=== PATIENT | male | born 1930 | race Caucasian/White ===

== ENCOUNTER 2016-12-10 16:06 | Emergency (ER) | payer OTHER ==
[~2016-12-10] VITALS: Ht 167.6 cm; Wt 72.5 kg
[~2016-12-10 16:06] MED LIST: ASPI81TA28 PO; CYAN100020 PO; FLV1 PO; KPP250 PO; LEVE500T PO; NMN10 PO; POLY335019 PO; RANI300T2 PO; VITA400C15 PO; ZCR40 PO
[2016-12-10 16:08] VITALS: TEMP 36.6; Ht 167.6 cm; Wt 72.5 kg
[2016-12-10] MEDS ORDERED: SODIUM CHLORIDE 0.9% 1000ML 1,000 ML IV STA (16:21)
[2016-12-10] MEDS ORDERED: ONDANSETRON INJ 2 MG/ML 2 ML VIAL IV STA (16:21)
[2016-12-10] MEDS ORDERED: PRLSR20 PO (16:39)
[2016-12-10] MEDS ORDERED: CLX40 PO (16:39)
[2016-12-10] MEDS ORDERED: ESLI1TAB PO (16:39)
--- NOTE | 2016-12-10 16:40 | DIAGNOSTIC IMAGING REPORT ---
SINGLE VIEW CHEST CLINICAL HISTORY: Atypical chest pain. FINDINGS: An AP, portable, upright chest radiograph is compared to study dated 05/10/2016 and correlated with chest CT dated 03/09/2016. The examination is degraded by portable technique and patient rotation. The heart is mildly enlarged and there is atherosclerotic calcification of the thoracic aorta. The pulmonary vasculature is noncongested. Chronic interstitial thickening is similar to previous. There is minimal bibasilar atelectasis. No airspace consolidation, large pleural effusion, or pneumothorax is seen. The skeletal structures are osteopenic. Degenerative change and scoliosis are identified in the thoracic spine. IMPRESSION: Mild cardiomegaly with no acute cardiopulmonary abnormality. Electronically signed by: Armando Conn M.D. 12/10/2016 4:38 PM Dictated Date/Time: 12/10/2016 4:37 PM
--- NOTE | 2016-12-10 17:01 | EMERGENCY ROOM VISIT NOTE ---
History Report prepared by Gurvinder: Ara Huerta Under the Supervision of: Dr. Irma Mg M.D. First contact with patient: 16:12 Chief Complaint: NEURO SYMPTOMS Stated Complaint: NAUSEA,BLURRED VISION,DROWSINESSS Nursing Triage Summary: Nausea, blurred vision and dizziness. Denies headache. Hx of dementia and seizure history. feels that the pts medications are not agreeing with him. History of Present Illness The patient is a 86 year old male who presents to the Emergency Room with complaints of worsening nausea that started earlier today. The patient has been experiencing nausea for the past year but today was worse than it typically is. He was lying in bed when he became very nauseous. The patient is also experiencing epigastric pressure and aches in his shoulders and legs. He also experienced blurred vision, dizziness, and chills. However, the patient's states that he has been experiencing chills ever since he started having seizures 1.5 years ago. The patient's also states that his medications have been continuously changing over the past year to try to get rid of his nausea. The patient also has a history of dementia and his states that the seizures are related to the dementia. The patient's also states that he has been experiencing worsening fatigue since that diagnosis. The patient had an appendectomy but still has his gallbladder. He adds that he has a history of kidney stones and weak spots in his esophagus. The patient started Celexa one week ago. His doctor also recently increased his medication for GERD. Source of History: patient Onset: earlier today Quality: other (nausea) Timing: worsening Associated Symptoms: + abdominal pain (epigastric pressure), + chills, + fatigue Note: blurred vision, dizziness, aches in shoulders and legs Review of Systems See HPI for pertinent positives & negatives. A total of 10 systems reviewed and were otherwise negative. Past Medical & Surgical Medical Problems: (1) Confusion (2) Dementia (3) GERD (gastroesophageal reflux disease) (4) Hiatal hernia (5) High cholesterol (6) Hypoxia (7) TIA (transient ischemic attack) Surgical Problems: (1) History of appendectomy (2) Hx of tonsillectomy Family History Diabetes mellitus MOTHER Social History Smoking Status: Never Smoker Alcohol Use: none Drug Use: none Marital Status: Housing Status: lives with family Occupation Status: retired Current/Historical Medications Scheduled Aspirin (Aspirin Ec), 81 MG PO QPM Citalopram (Citalopram Hydrobromide), 40 MG PO DAILY Cyanocobalamin (Vitamin B12), 1,000 MCG PO DAILY AT LUNCH Eslicarbazepine Acetate (Aptiom), 200 MG PO DAILY Folic Acid (Folic Acid), 1 MG PO HS Memantine (Namenda), 10 MG PO BID Omeprazole (Prilosec), 20 MG PO DAILY Polyethylene Glycol 3350 (Miralax), 17 GM PO QAM Simvastatin (Simvastatin), 40 MG PO QPM Tocopheryl Acet,Dl-Alpha (Vitamin E), 400 INTER.UNIT PO QPM Allergies Coded Allergies: Aspirin (Verified Adverse Reaction, Severe, STOMACH CRAMPS WITH 325MG, ) Physical Exam Vital Signs Date Time Temp Pulse Resp B/P Pulse Ox O2 Delivery O2 Flow Rate FiO2 12/10/16 19:29 56 18 142/65 96 Room Air 12/10/16 18:24 86 18 125/80 94 Room Air 12/10/16 16:22 56 12/10/16 16:08 36.6 58 18 124/65 91 Room Air Physical Exam Vital signs reviewed. General: Well-appearing male, in no significant distress. HEENT: No scleral icterus, PERRLA, neck supple. Atraumatic. Cardiovascular: Regular rate and rhythm, no extra sounds. Pulmonary: Clear to auscultation bilaterally, normal work of breathing. Abdomen: Soft, nontender, nondistended, positive bowel sounds. Musculoskeletal: Atraumatic, no peripheral edema. Neurologic: Patient awake alert and oriented x 3, answers questions appropriately. Full strength in all 4 extremities. Cranial nerves 2 through 12 grossly intact. Skin: Warm, dry, no rash Medical Decision & Procedures ER Provider Diagnostic Interpretation: X-ray results as stated below per my interpretation and radiologist interpretation. Other radiology results as stated below per my review and radiologist interpretation: SINGLE VIEW CHEST IMPRESSION: Mild cardiomegaly with no acute cardiopulmonary abnormality. Electronically signed by: Armando Conn M.D. 12/10/2016 4:38 PM Dictated Date/Time: 12/10/2016 4:37 PM ULTRASOUND RIGHT UPPER QUADRANT ABDOMEN IMPRESSION: 1. No acute sonographic abnormality is identified in the right upper quadrant. 2. Minimal biliary sludge and small gallstones. There is no sonographic evidence of acute cholecystitis. 3. The pancreas was not well visualized due to overlying bowel gas. Electronically signed by: Armando Conn M.D. 12/10/2016 6:09 PM Dictated Date/Time: 12/10/2016 6:[address] SCAN OF THE BRAIN WITHOUT IV CONTRAST IMPRESSION: Senescent changes as above with no hemorrhage, mass effect, or evidence of acute territorial ischemia by CT criteria. Electronically signed by: Armando Conn M.D. 12/10/2016 6:52 PM Dictated Date/Time: 12/10/2016 6:49 PM Laboratory Results 12/10/16 16:50 Red Blood Count 4.58, Mean Corpuscular Volume 94.8, Mean Corpuscular Hemoglobin 34.3, Mean Corpuscular Hemoglobin Concent 36.2, Mean Platelet Volume 9.9, Neutrophils (%) (Auto) 52.6, Lymphocytes (%) (Auto) 33.1, Monocytes (%) (Auto) 12.8, Eosinophils (%) (Auto) 1.1, Basophils (%) (Auto) 0.2, Neutrophils # (Auto ) 4.47, Lymphocytes # (Auto) 2.82, Monocytes # (Auto) 1.09, Eosinophils # (Auto ) 0.09, Basophils # (Auto) 0.02 12/10/16 16:50 Test 12/10/16 16:50 12/10/16 16:59 12/10/16 17:26 White Blood Count 8.51 K/uL (4.8-10.8) Red Blood Count 4.58 M/uL (4.7-6.1) Hemoglobin 15.7 g/dL (14.0-18.0) Hematocrit 43.4 % (42-52) Mean Corpuscular Volume 94.8 fL (80-100) Mean Corpuscular Hemoglobin 34.3 pg (25-34) Mean Corpuscular Hemoglobin Concent 36.2 g/dl (32-36) Platelet Count 172 K/uL (130-400) Mean Platelet Volume 9.9 fL (7.4-10.4) Neutrophils (%) (Auto) 52.6 % Lymphocytes (%) (Auto) 33.1 % Monocytes (%) (Auto) 12.8 % Eosinophils (%) (Auto) 1.1 % Basophils (%) (Auto) 0.2 % Neutrophils # (Auto) 4.47 K/uL (1.4-6.5) Lymphocytes # (Auto) 2.82 K/uL (1.2-3.4) Monocytes # (Auto) 1.09 K/uL (0.11-0.59) Eosinophils # (Auto) 0.09 K/uL (0-0.5) Basophils # (Auto) 0.02 K/uL (0-0.2) RDW Standard Deviation 40.9 fL (36.4-46.3) RDW Coefficient of Variation 11.9 % (11.5-14.5) Immature Granulocyte % (Auto) 0.2 % Immature Granulocyte # (Auto) 0.02 K/uL (0.00-0.02) Anion Gap 8.0 mmol/L (3-11) Est Creatinine Clear Calc Drug Dose 36.8 ml/min Estimated GFR () 57.3 Estimated GFR (Non- 49.4 BUN/Creatinine Ratio 12.5 (10-20) Calcium Level 9.0 mg/dl (8.5-10.1) Magnesium Level 2.3 mg/dl (1.8-2.4) Total Bilirubin 0.9 mg/dl (0.2-1) Direct Bilirubin 0.2 mg/dl (0-0.2) Aspartate Amino Transf (AST/SGOT) 23 U/L (15-37) Alanine Aminotransferase (ALT/SGPT) 25 U/L (12-78) Alkaline Phosphatase 77 U/L (45-117) Total Creatine Kinase 52 U/L (39-308) Creatine Kinase MB 0.6 ng/ml (0.5-3.6) Creatine Kinase MB Ratio 1.2 (0-3.0) Total Protein 6.4 gm/dl (6.4-8.2) Albumin 3.7 gm/dl (3.4-5.0) Lipase 104 U/L (73-393) Bedside Troponin I 0.000 ng/ml (0-0.045) Urine Color YELLOW Urine Appearance CLEAR (CLEAR) Urine pH 7.5 (4.5-7.5) Urine Specific D[place] 1.009 (1.000-1.030) Urine Protein NEG (NEG) Urine Glucose (UA) NEG (NEG) Urine Ketones NEG (NEG) Urine Occult Blood NEG (NEG) Urine Nitrite NEG (NEG) Urine Bilirubin NEG (NEG) Urine Urobilinogen NEG (NEG) Urine Leukocyte Esterase NEG (NEG) Laboratory results per my review. Medications Administered Medications (Trade) Dose Ordered Sig/Saundra Route Start Time Stop Time Status Last Admin Dose Admin Ondansetron HCl 4 mg 4 mg NOW STAT IV 12/10/16 16:21 12/10/16 16:24 DC 12/10/16 17:21 4 MG Sodium Chloride (Nss 1000ml) 1,000 ml @ 125 mls/hr Q8H STAT IV 12/10/16 16:21 12/10/16 20:06 DC 12/10/16 17:21 125 MLS/HR ECG Indication: nausea Rate (beats per minute): 52 Rhythm: sinus bradycardia Findings: 1st degree AV block, no acute ischemic change, no ectopy ED Course 1616: Past medical records reviewed. The patient was evaluated in room B5. A complete history and physical examination was performed. 1621: Ordered Sodium Chloride 1000 ml @ 125 mls/hr IV, Zofran 4 mg IV 1910: Upon reevaluation, the patient appeared to have improvement of his symptoms. I discussed findings with the patient and his . They verbalized agreement of the treatment plan. The patient was discharged home. Medical Decision The patient is a 86 year old male who presents to the Emergency Room with complaints of worsening nausea that started earlier today. Differentials include metabolic, infection, hypo/hyperglycemia, electrolyte abnormalities, cardiac sources, intracerebral event, toxicologic, neurologic. This patient was evaluated and appeared to be in no significant distress. IV access was obtained and laboratory work was drawn. The patient was placed floatman and found to be in a sinus bradycardia. Laboratory work reveals no significant abnormalities. Patient's EKG reveals no evidence of acute ischemia. The patient has aspirin listed as an allergy. When he is asked to describe the effects of aspirin, he states it gives him gastritis when he takes in as a full strength tablet. The patient is currently on a baby aspirin daily. I suspect this may be giving him nausea and reflux. The patient was strongly advised to hold the aspirin until he speaks with his physician. He was recently placed on Prilosec and will continue this medication. He will use Zantac as needed twice daily. The patient was discharged in care of his and will follow-up with his physician is week and return to the ER for worsening of symptoms or any medical concerns. Impression Primary Impression: Long-term use of aspirin therapy Additional Impression: Gastritis, acute Scribe Attestation The scribe's documentation has been prepared under my direction and personally reviewed by me in its entirety. I confirm that the note above accurately reflects all work, treatment, procedures, and medical decision making performed by me. Departure Information Dispostion Home / Self-Care Referrals Maegan Valencia M.D. (PCP) Forms HOME CARE DOCUMENTATION FORM, IMPORTANT VISIT INFORMATION, WORK / SCHOOL INSTRUCTIONS Patient Instructions My [facility] Additional Instructions Diagnosis: Gastritis, aspirin therapy, dementia Stop aspirin therapy until you speak with your doctor. Continue your other medications as prescribed. Use ranitidine up to twice daily as needed for acid reflux. Follow-up with your physician this week for reevaluation. Return to the ER for worsening of symptoms or any medical concerns. Problem Qualifiers Additional Impression: Gastritis, acute Gastritis type: unspecified gastritis Gastritis bleeding: without bleeding Qualified Codes: K29.00 - Acute gastritis without bleeding
[2016-12-10 17:08] LABS: BASO % 0.2 %; BASO ABS # 0.02 K/uL (0-0.2); COMPLETE YES; EOS % 1.1 %; HEMATOCRIT 43.4 % (42-52); IG% 0.2 %; LYMPH % 33.1 %; LYMPH ABS # 2.82 K/uL (1.2-3.4); MEAN CELL VOLUME 94.8 fL (80-100); MEAN CORPUSCULAR HEMOGLOBIN 34.3 pg (25-34); MEAN CORPUSCULAR HGB CONC 36.2 g/dl (32-36); MEAN PLATELET VOLUME 9.9 fL (7.4-10.4); MONO % 12.8 %; NEUT % 52.6 %; PLATELET COUNT 172 K/uL (130-400); RED BLOOD COUNT 4.58 M/uL (4.7-6.1); WHITE BLOOD COUNT 8.51 K/uL (4.8-10.8)
[2016-12-10 17:31] LABS: BUN/CREATININE RATIO 12.5 (10-20); CREATININE 1.3 mg/dl (0.60-1.40); MAGNESIUM 2.3 mg/dl (1.8-2.4); POTASSIUM 4.4 mmol/L (3.5-5.1)
[2016-12-10 17:34] LABS: CKMB/CK RATIO 1.2 (0-3.0)
[2016-12-10 17:54] LABS: URINE APPEARANCE CLEAR (CLEAR); URINE BILIRUBIN NEG (NEG); URINE COLOR YELLOW; URINE NITRITE NEG (NEG); URINE PH 7.5 (4.5-7.5); URINE SPECIFIC GRAVITY 1.009 (1.000-1.030); UROBILINOGEN NEG (NEG); ZZUR CULT IF INDIC CLEAN CATCH NO
--- NOTE | 2016-12-10 18:11 | DIAGNOSTIC IMAGING REPORT ---
ULTRASOUND RIGHT UPPER QUADRANT ABDOMEN CLINICAL HISTORY: Right upper quadrant abdominal pain. COMPARISON STUDY: Renal ultrasound dated 11/03/2011. TECHNIQUE: Real-time, grayscale, and color flow sonography of the right upper quadrant of the abdomen was performed. Images are reviewed in the transverse and longitudinal planes. FINDINGS: Liver: The liver is normal in size and echotexture. There is no intrahepatic biliary ductal dilatation. The main portal vein is patent. Small hepatic cysts are incidentally noted and measure up to 11 mm. Gallbladder: There is trace biliary sludge and a few small gallstones. There is no gallbladder wall thickening or pericholecystic fluid. A sonographic Womack's sign is reportedly absent. The common bile duct measures up to 0.6 cm in diameter. Pancreas: Not well visualized due to overlying bowel gas. Right kidney: Survey images of the right kidney demonstrate cortical atrophy. There is no hydronephrosis. Ascites: None. IMPRESSION: 1. No acute sonographic abnormality is identified in the right upper quadrant. 2. Minimal biliary sludge and small gallstones. There is no sonographic evidence of acute cholecystitis. 3. The pancreas was not well visualized due to overlying bowel gas. Electronically signed by: Armando Conn M.D. 12/10/2016 6:09 PM Dictated Date/Time: 12/10/2016 6:07 PM
[2016-12-10 18:17] LABS: MANUAL MICROSCOPIC REQUIRED? NO; REVIEW REQ? NO
--- NOTE | 2016-12-10 18:54 | DIAGNOSTIC IMAGING REPORT ---
CT SCAN OF THE BRAIN WITHOUT IV CONTRAST CLINICAL HISTORY: Change in mental status. Dementia. COMPARISON STUDY: CT of the brain dated 05/10/2016. MRI of the brain dated 05/10/2016. TECHNIQUE: Unenhanced axial CT scan of the brain is performed from the vertex to the skull base. CT DOSE: 537.48 mGy.cm FINDINGS: Brain parenchyma: There are age-related involutional changes noting mild to moderate patchy subcortical and periventricular microangiopathic change. There is no hemorrhage, mass effect, or evidence of acute territorial ischemia by CT criteria. Bass-white matter is preserved. No extra-axial fluid collection is seen. Ventricles, sulci, cisterns: Prominent secondary to involutional change. Intracranial vasculature: There is atherosclerotic calcification of the cavernous carotid and vertebral arteries. Calvarium: Unremarkable. Sinuses and mastoids: The visualized paranasal sinuses are clear. The mastoid air cells are well pneumatized. Orbits: The bony orbits are grossly intact. There are bilateral ocular lens implants. IMPRESSION: Senescent changes as above with no hemorrhage, mass effect, or evidence of acute territorial ischemia by CT criteria. Electronically signed by: Armando Conn M.D. 12/10/2016 6:52 PM Dictated Date/Time: 12/10/2016 6:49 PM
[2016-12-10 19:29] VITALS: BP 142/65; PULSE 56; O2SAT 96
[2017-05-19] MEDS ORDERED: AMOX500C3 PO (14:58)
== END 2016-12-10 19:29 | disposition home or self-care (01) ==
LOC: C.EDB 16:07
DX: K29.00 Acute gastritis without bleeding (principal); I44.0 Atrioventricular block, first degree; E78.00 Pure hypercholesterolemia, unspecified; K21.9 Gastro-esophageal reflux disease without esophagitis; F03.90 Unspecified dementia, unspecified severity, without behavioral disturbance, psychotic disturbance, mood disturbance, and anxiety; Z86.73 Personal history of transient ischemic attack (TIA), and cerebral infarction without residual deficits; Z98.890 Other specified postprocedural states; Z79.82 Long term (current) use of aspirin; Z79.899 Other long term (current) drug therapy; Z88.6 Allergy status to analgesic agent; Z83.3 Family history of diabetes mellitus

== ENCOUNTER 2017-04-27 14:03 | Observation (INO) | payer OTHER ==
[~2017-04-27] VITALS: Ht 166.4 cm; Wt 69.6 kg
[~2017-04-27 14:03] MED LIST changes: +CLX40 PO; +ESLI1TAB PO; -KPP250 PO; -LEVE500T PO; +PRLSR20 PO; -RANI300T2 PO
[2017-04-27] MEDS ORDERED: VITACAP37 PO (14:29)
[2017-04-27] MEDS ORDERED: ESLI1TAB PO (14:29)
[2017-04-27 14:34] LABS: BASO % 0.2 %; BASO ABS # 0.02 K/uL (0-0.2); COMPLETE YES; EOS % 0.7 %; HEMATOCRIT 45.7 % (42-52); IG% 0.5 %; LYMPH % 32.4 %; LYMPH ABS # 3.18 K/uL (1.2-3.4); MEAN CELL VOLUME 96.6 fL (80-100); MEAN CORPUSCULAR HEMOGLOBIN 33.2 pg (25-34); MEAN CORPUSCULAR HGB CONC 34.4 g/dl (32-36); MEAN PLATELET VOLUME 9.9 fL (7.4-10.4); MONO % 10.2 %; PLATELET COUNT 167 K/uL (130-400); RED BLOOD COUNT 4.73 M/uL (4.7-6.1); WHITE BLOOD COUNT 9.82 K/uL (4.8-10.8)
--- NOTE | 2017-04-27 14:56 | DIAGNOSTIC IMAGING REPORT ---
CHEST ONE VIEW PORTABLE HISTORY: Evaluate Fever/Sepsis COMPARISON: Chest 11/30/2016. FINDINGS: The lungs are clear. Cardiac silhouette remains borderline enlarged. Low lung volumes. No pleural effusions. No pneumothorax. IMPRESSION: No significant change compared to the prior study. No acute process. Electronically signed by: Klever Goff M.D. 04/27/2017 2:55 PM Dictated Date/Time: 04/27/2017 2:53 PM
[2017-04-27 15:14] LABS: PROTHROMBIN TIME (PATIENT) 10.8 SECONDS (9.0-12.0)
[2017-04-27 15:31] LABS: ALT/SGPT 22 U/L (12-78); AST/SGOT 14 U/L (15-37); BLOOD UREA NITROGEN 19 mg/dl (7-18); BUN/CREATININE RATIO 13.5 (10-20); CALCIUM 8.5 mg/dl (8.5-10.1); CARBON DIOXIDE 25 mmol/L (21-32); CHLORIDE 105 mmol/L (98-107); GLUCOSE 109 mg/dl (70-99); POTASSIUM 3.9 mmol/L (3.5-5.1); SODIUM 138 mmol/L (136-145)
[2017-04-27 15:42] LABS: ALKALINE PHOSPHATASE 75 U/L (45-117); CKMB/CK RATIO 1.5 (0-3.0)
--- NOTE | 2017-04-27 16:14 | EMERGENCY ROOM VISIT NOTE ---
History Report prepared by Gurvinder: Chapincito Segura Under the Supervision of: Dr. Prosper Robledo D.O. First contact with patient: 14:14 Chief Complaint: GI ASSESSMENT Stated Complaint: N, TIRED, INDIGESTION/ACID REFLUX Nursing Triage Summary: triage note: pt reports fatigue, nausea, chills, chest pressure "it's acid reflux i think i have to rift and then it eases up." pt reports symptoms have been going on " for a couple weeks or so." History of Present Illness The patient is a 86 year old male who presents to the Emergency Room with complaints of constant fatigue upon exertion which began a couple of weeks ago. He reports the discomfort as a 4/10 in severity. The patient states that he has been experiencing indigestion, bowel problems, weakness, back pain, chest pressure, chills, acid reflux, loss of appetite, vomiting, and vision loss. The patient's states that he feels fatigued after any sort of physical movement such as ambulating. He reports that he feels he needs to sit down for five to ten minutes to recover from his exhaustion. The patient states "he feels like I have to rift and then it gets better". The patient states that it has been hard to stay awake and he sleeps a lot. The patient's states that she has noticed he has been anxious and shaky lately. The patient admits that he has had a history of seizures for the past two years and has been taking medication for the past year and a half. He states that the doctors said the cause for the seizures was dehydration and admits that drinking water has helped decrease episodes. The patient's states that she has been checking his pulse every hour. She reports that it has been fluctuating from the 40s to the 70s. The patient denies any cardiac issues or medication for blood pressure. He does admit that he took aspiring in the past but was advised to stop due to nausea. Source of History: patient, spouse/significant other () Onset: a couple of weeks ago Position: other (global) Symptom Intensity: 4/10 Timing: constant Modifying Factors (Worsening): exertion Modifying Factors (Relieving): rest Associated Symptoms: + back pain, + chest pain, + chills, + nausea, + vomiting, + weakness Note: Associated symptoms include: vision loss, acid reflux, indigestion Review of Systems See HPI for pertinent positives & negatives. A total of 10 systems reviewed and were otherwise negative. Past Medical & Surgical Medical Problems: (1) Confusion (2) Dementia (3) GERD (gastroesophageal reflux disease) (4) Hiatal hernia (5) High cholesterol (6) Hypoxia (7) Kidney disease (8) Kidney stones (9) Pneumonia (10) Stomach problems (11) TIA (transient ischemic attack) Surgical Problems: (1) History of appendectomy (2) History of nephrolithotomy with removal of calculi (3) Hx of tonsillectomy Family History Diabetes mellitus MOTHER Social History Smoking Status: Never Smoker Alcohol Use: none Drug Use: none Marital Status: Housing Status: lives with family Occupation Status: retired Current/Historical Medications Scheduled Cyanocobalamin (Vitamin B12), 1,000 MCG PO DAILY AT LUNCH Eslicarbazepine Acetate (Aptiom), 200 MG PO HS Folic Acid (Folic Acid), 1 MG PO HS Memantine (Namenda), 10 MG PO BID Omeprazole (Prilosec), 20 MG PO DAILY Polyethylene Glycol 3350 (Miralax), 17 GM PO QAM Simvastatin (Simvastatin), 40 MG PO QPM Vitamin E (E-400), 400 UNITS PO DAILY Allergies Coded Allergies: Aspirin (Verified Adverse Reaction, Severe, STOMACH CRAMPS WITH 325MG, ) Physical Exam Vital Signs Date Time Temp Pulse Resp B/P Pulse Ox O2 Delivery O2 Flow Rate FiO2 04/27/17 16:00 58 12 99/66 93 Room Air 04/27/17 15:00 58 16 100/71 94 Room Air 04/27/17 14:26 66 18 120/71 94 Room Air 04/27/17 14:16 72 04/27/17 14:07 36.7 41 18 95/58 95 Room Air Physical Exam CONSTITUTIONAL/VITAL SIGNS: Reviewed / noted above. GENERAL: Non-toxic in appearance. INTEGUMENTARY: Warm, dry, and [place]. HEAD: Normocephalic. EYES: without scleral icterus or trauma. ENT/OROPHARYNX: clear and moist. LYMPHADENOPATHY/NECK: Is supple without lymphadenopathy or meningismus. RESPIRATORY: Lungs clear and equal. CARDIOVASCULAR: Regular rate and rhythm. GI/ABDOMEN: Soft and nontender. No organomegaly or pulsatile mass. No rebound or guarding. Normal bowel sounds. EXTREMITIES: Warm and well perfused. BACK: No CVA tenderness. NEUROLOGICAL: Intact without focal deficits. PSYCHIATRIC: normal affect. MUSCULOSKELETAL: Normally developed with good muscle tone. Medical Decision & Procedures ER Provider Diagnostic Interpretation: X ray results and stated below per my interpretation and radiology interpretation. CHEST ONE VIEW PORTABLE HISTORY: Evaluate Fever/Sepsis COMPARISON: Chest 11/30/2016. FINDINGS: The lungs are clear. Cardiac silhouette remains borderline enlarged. Low lung volumes. No pleural effusions. No pneumothorax. IMPRESSION: No significant change compared to the prior study. No acute process. Electronically signed by: Klever Goff M.D. 04/27/2017 2:55 PM Dictated Date/Time: 04/27/2017 2:53 PM Laboratory Results 04/27/17 14:20 Red Blood Count 4.73, Mean Corpuscular Volume 96.6, Mean Corpuscular Hemoglobin 33.2, Mean Corpuscular Hemoglobin Concent 34.4, Mean Platelet Volume 9.9, Neutrophils (%) (Auto) 56.0, Lymphocytes (%) (Auto) 32.4, Monocytes (%) (Auto) 10.2, Eosinophils (%) (Auto) 0.7, Basophils (%) (Auto) 0.2, Neutrophils # (Auto ) 5.50, Lymphocytes # (Auto) 3.18, Monocytes # (Auto) 1.00, Eosinophils # (Auto ) 0.07, Basophils # (Auto) 0.02 04/27/17 14:55 Test 04/27/17 14:20 04/27/17 14:55 White Blood Count 9.82 K/uL (4.8-10.8) Red Blood Count 4.73 M/uL (4.7-6.1) Hemoglobin 15.7 g/dL (14.0-18.0) Hematocrit 45.7 % (42-52) Mean Corpuscular Volume 96.6 fL (80-100) Mean Corpuscular Hemoglobin 33.2 pg (25-34) Mean Corpuscular Hemoglobin Concent 34.4 g/dl (32-36) Platelet Count 167 K/uL (130-400) Mean Platelet Volume 9.9 fL (7.4-10.4) Neutrophils (%) (Auto) 56.0 % Lymphocytes (%) (Auto) 32.4 % Monocytes (%) (Auto) 10.2 % Eosinophils (%) (Auto) 0.7 % Basophils (%) (Auto) 0.2 % Neutrophils # (Auto) 5.50 K/uL (1.4-6.5) Lymphocytes # (Auto) 3.18 K/uL (1.2-3.4) Monocytes # (Auto) 1.00 K/uL (0.11-0.59) Eosinophils # (Auto) 0.07 K/uL (0-0.5) Basophils # (Auto) 0.02 K/uL (0-0.2) RDW Standard Deviation 42.4 fL (36.4-46.3) RDW Coefficient of Variation 12.0 % (11.5-14.5) Immature Granulocyte % (Auto) 0.5 % Immature Granulocyte # (Auto) 0.05 K/uL (0.00-0.02) Prothrombin Time 10.8 SECONDS (9.0-12.0) Prothromb Time International Ratio 1.0 (0.9-1.1) Activated Partial Thromboplast Time 25.3 SECONDS (21.0-31.0) Partial Thromboplastin Ratio 1.0 Anion Gap 8.0 mmol/L (3-11) Est Creatinine Clear Calc Drug Dose 34.2 ml/min Estimated GFR () 52.4 Estimated GFR (Non- 45.2 BUN/Creatinine Ratio 13.5 (10-20) Calcium Level 8.5 mg/dl (8.5-10.1) Total Bilirubin 1.3 mg/dl (0.2-1) Direct Bilirubin 0.3 mg/dl (0-0.2) Aspartate Amino Transf (AST/SGOT) 14 U/L (15-37) Alanine Aminotransferase (ALT/SGPT) 22 U/L (12-78) Alkaline Phosphatase 75 U/L (45-117) Total Creatine Kinase 48 U/L (39-308) Creatine Kinase MB 0.7 ng/ml (0.5-3.6) Creatine Kinase MB Ratio 1.5 (0-3.0) Troponin I < 0.015 ng/ml (0-0.045) Total Protein 6.2 gm/dl (6.4-8.2) Albumin 3.6 gm/dl (3.4-5.0) Lipase 80 U/L (73-393) Thyroid Stimulating Hormone (TSH) 1.710 uIu/ml (0.300-4.500) Laboratory results as stated above per my review. ECG Indication: weakness Rate (beats per minute): 66 Rhythm: sinus with SA Findings: PVC, no acute ischemic change, no ectopy ED Course 1415: Previous medical records were reviewed. The patient was evaluated in room C10. A complete history and physical examination was performed. 1608: On reevaluation, the patient is doing better. I discussed the results and findings with Dr. Donohue, [facility] Hospitalist. She verbalized agreement of accepting the patient. The patient will be evaluated for further management and care. Medical Decision Blood pressure Screening: Patient was found to have normal blood pressure on screening and does not require follow-up. Medication Reconciliation: I attest that I have personally reviewed the patient' s current medication list. the differential was considered includes acute myocardial infarction, acute coronary syndrome, myocarditis, pericarditis, pericardial effusions /tamponad, esophageal perforation, thoracic aortic dissection, pulmonary embolism, pneumonia, pneumothorax, pancreatitis, shingles, acute cholecystitis, perforated abdominal viscus. This is a 86-year-old male who presents to the ED with a chief complaint of weakness, balance problems and exhaustion as well as lightheadedness associated with exertion. The patient also reports some chest discomfort and back discomfort with exertion. He states that this is been ongoing for the couple of weeks. He also states that he is nauseated all the time. He is currently not having any significant symptoms. His vital signs are stable. His heart rate was initially documented at 41. When he was in the room it was in the 60s and 70s. A twelve-lead EKG showed a sinus rhythm at a rate of 66 with some PVCs. No acute injury. CBC and PRP are unremarkable. Chest x-ray did not show acute disease. Troponin is negative. Due to the patient's exertional symptoms, the patient is felt to have unstable angina. He will be seen by the hospitalist for further inpatient care. Consults Time Called: 1605 Consulting Physician: Dr. Donohue Returned Call: 1608 I discussed the results and findings with Dr. Donohue, [facility] Hospitalist. She verbalized agreement of accepting the patient. The patient will be evaluated for further management and care. Impression Primary Impression: Unstable angina Scribe Attestation The scribe's documentation has been prepared under my direction and personally reviewed by me in its entirety. I confirm that the note above accurately reflects all work, treatment, procedures, and medical decision making performed by me. Departure Information Dispostion Being Evaluated By Hospitalist Maegan Prater M.D. (PCP) Patient Instructions My [facility]
--- NOTE | 2017-04-27 16:55 | History and Physical ---
History & Physical Date & Time of Service: April 27, 2017 at 16:43 Chief Complaint: N, Tired, Indigestion/Acid Reflux Primary Care Physician: Maegan Valencia M.D. History of Present Illness Source: patient, spouse, clinic records, hospital records This patient is a pleasant 86-year-old male that presents emergency department with his today with complaints of increased fatigue, chest pressure, nausea and dizziness particularly with exertion. The patient also notes that he has been sleeping much more than usual. The patient denies any history of coronary artery disease. 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 He has not had any seizures recently. No recent changes in medications. With the above associated symptoms, the patient is also complaining of nausea particularly after eating. He denies any abdominal pain. No changes in bowel movements. He does usually have at least one bowel movement per day. He denies any recent illnesses such as fever or cough. He reports eating and drinking normally at home. 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 NO CAD Social History Smoking Status: Never Smoker Alcohol Use: none Drug Use: none Marital Status: Housing status: lives with significant other Occupational Status: retired Multi-Drug Resistant Organisms History of MDRO: No Allergies Coded Allergies: Aspirin (Verified Adverse Reaction, Severe, STOMACH CRAMPS WITH 325MG, ) Home Medications Scheduled Cyanocobalamin (Vitamin B12), 1,000 MCG PO DAILY AT LUNCH Eslicarbazepine Acetate (Aptiom), 200 MG PO HS Folic Acid (Folic Acid), 1 MG PO HS Memantine (Namenda), 10 MG PO BID Omeprazole (Prilosec), 20 MG PO DAILY Polyethylene Glycol 3350 (Miralax), 17 GM PO QAM Simvastatin (Simvastatin), 40 MG PO QPM Vitamin E (E-400), 400 UNITS PO DAILY Review of Systems 10 system review performed and negative unless noted in HPI or below Physical Exam Vital Signs Date Time Temp Pulse Resp B/P Pulse Ox O2 Delivery O2 Flow Rate FiO2 04/27/17 16:00 58 12 99/66 93 Room Air 04/27/17 15:00 58 16 100/71 94 Room Air 04/27/17 14:26 66 18 120/71 94 Room Air 04/27/17 14:16 72 04/27/17 14:07 36.7 41 18 95/58 95 Room Air General Appearance: no apparent distress Head: normocephalic Eyes: EOMI ENT: + pertinent finding (oral mucosa slightly dry. No exudate noted.) Neck: no JVD Respiratory/Chest: lungs clear Cardiovascular: regular rate, rhythm Abdomen/GI: normal bowel sounds, non tender, soft Extremities/Musculoskelatal: no calf tenderness, no pedal edema Neurologic/Psych: no motor/sensory deficits, alert (answering questions appropriately.), oriented x 3 Skin: warm/dry Diagnostics Laboratory Results Results Past 24 Hours Test 04/27/17 14:20 04/27/17 14:55 Range/Units White Blood Count 9.82 4.8-10.8 K/uL Red Blood Count 4.73 4.7-6.1 M/uL Hemoglobin 15.7 14.0-18.0 g/dL Hematocrit 45.7 42-52 % Mean Corpuscular Volume 96.6 80-100 fL Mean Corpuscular Hemoglobin 33.2 25-34 pg Mean Corpuscular Hemoglobin Concent 34.4 32-36 g/dl Platelet Count 167 130-400 K/uL Mean Platelet Volume 9.9 7.4-10.4 fL Neutrophils (%) (Auto) 56.0 % Lymphocytes (%) (Auto) 32.4 % Monocytes (%) (Auto) 10.2 % Eosinophils (%) (Auto) 0.7 % Basophils (%) (Auto) 0.2 % Neutrophils # (Auto) 5.50 1.4-6.5 K/uL Lymphocytes # (Auto) 3.18 1.2-3.4 K/uL Monocytes # (Auto) 1.00 0.11-0.59 K/uL Eosinophils # (Auto) 0.07 0-0.5 K/uL Basophils # (Auto) 0.02 0-0.2 K/uL RDW Standard Deviation 42.4 36.4-46.3 fL RDW Coefficient of Variation 12.0 11.5-14.5 % Immature Granulocyte % (Auto) 0.5 % Immature Granulocyte # (Auto) 0.05 0.00-0.02 K/uL Prothrombin Time 10.8 9.0-12.0 SECONDS Prothromb Time International Ratio 1.0 0.9-1.1 Activated Partial Thromboplast Time 25.3 21.0-31.0 SECONDS Partial Thromboplastin Ratio 1.0 Sodium Level 138 136-145 mmol/L Potassium Level 3.9 3.5-5.1 mmol/L Chloride Level 105 98-107 mmol/L Carbon Dioxide Level 25 21-32 mmol/L Anion Gap 8.0 3-11 mmol/L Blood Urea Nitrogen 19 7-18 mg/dl Creatinine 1.40 0.60-1.40 mg/dl Est Creatinine Clear Calc Drug Dose 34.2 ml/min Estimated GFR () 52.4 Estimated GFR (Non- 45.2 BUN/Creatinine Ratio 13.5 10-20 Random Glucose 109 70-99 mg/dl Calcium Level 8.5 8.5-10.1 mg/dl Total Bilirubin 1.3 0.2-1 mg/dl Direct Bilirubin 0.3 0-0.2 mg/dl Aspartate Amino Transf (AST/SGOT) 14 15-37 U/L Alanine Aminotransferase (ALT/SGPT) 22 12-78 U/L Alkaline Phosphatase 75 45-117 U/L Total Creatine Kinase 48 39-308 U/L Creatine Kinase MB 0.7 0.5-3.6 ng/ml Creatine Kinase MB Ratio 1.5 0-3.0 Troponin I < 0.015 0-0.045 ng/ml Total Protein 6.2 6.4-8.2 gm/dl Albumin 3.6 3.4-5.0 gm/dl Lipase 80 73-393 U/L Thyroid Stimulating Hormone (TSH) 1.710 0.300-4.500 uIu/ml Diagnostic Radiology Patient Name: NICOL MONREAL Unit Number: [id number] Dictated: 04/27/171452 Transcribed: 04/27/171452 [place] Printed Date/Time: [~ rep prt dt]/[~ rep prt tm] [~ rep ct labl] - [~ rep ct ivnm] [facility] [place] [place] [address] Dictated: 04/27/171452 Transcribed: 04/27/171452 [facility] Printed Date/Time: [~ rep prt dt]/[~ rep prt tm] [~ rep ct labl] - [~ rep ct ivnm] Patient: NICOL MONREAL Address1: [address] [place] [address] Rec: [id number] Address2: Acct ID: [id number] [facility] Zip: [place] [address] Date: 1930 Sex: M Room/Bed: Ref Phy: Maegan Valencia M.D. SC: UZIEL Att Phy: Report #: [id number] Malathi Phy: Maegan Valencia M.D. Test: CXR1P Admit Phy: Life Enrichment Manager: KIA Interpreting Phy: Klever Goff MD Diagnosis: N, TIRED, INDIGESTION/ ACID REFLUX Ordering Phy: Prosper Robledo D.O. Service Date: 04/27/17 Admit Date: 04/27/17 MNE: [id number] CONF: DICTATED BY: Klever Goff M.D.]] CC: Maegan Valencia M.D. Mishock, Kevin, D.O. Endcc: [~ rep ct add3]] CHEST ONE VIEW PORTABLE HISTORY: Evaluate Fever/Sepsis COMPARISON: Chest 11/30/2016. FINDINGS: The lungs are clear. Cardiac silhouette remains borderline enlarged. Low lung volumes. No pleural effusions. No pneumothorax. IMPRESSION: No significant change compared to the prior study. No acute process. Electronically signed by: Klever Goff M.D. 04/27/2017 2:55 PM Dictated Date/Time: 04/27/2017 2:53 PM The status of this report is Signed. Draft = Not yet reviewed or approved by Radiologist. Signed = Reviewed and approved by Radiologist. <AttendingPhy></AttendingPhy> <FamilyPhy>Maegan Valencia M.D.</FamilyPhy> < PrimaryPhy>Maegan Valencia M.D.</PrimaryPhy> <UnitNumber>[id number]</ UnitNumber> <VisitNumber>[id number]</VisitNumber> <PatientName>NICOL MONREAL</PatientName> <DateOfBirth>1930</DateOfBirth> <Location>[facility]</ Location> <ServiceDate>04/27/17</ServiceDate> <MNE>ESINDI</MNE> <OrderingPhy> Prosper Robledo D.O.</OrderingPhy> <OrderingPhyMNE>f rep ord dr gan</ OrderingPhyMNE> <DictatingPhyMNE>f rep dict dr gan</DictatingPhyMNE> <CCListMNE> f rep ct mne</CCListMNE> <AdmittingPhyMNE>f pt admit dr gan</AdmittingPhyMNE> < AttendingPhyMNE>f pt attend dr gan</AttendingPhyMNE> <ConsultingPhyMNE>f pt consult dr gan</ConsultingPhyMNE> <FamilyPhyMNE>f pt fam dr gan</FamilyPhyMNE> <OtherPhyMNE>f pt other dr gan</OtherPhyMNE> < PrimaryPhyMNE>f pt prim care dr gan</PrimaryPhyMNE> <ReferringPhyMNE>f pt referring dr gan</ReferringPhyMNE> EKG Normal sinus rhythm 66 bpm PVCs noted, which appear new. No ischemic changes noted Impression Assessment and Plan 86-year-old male presents to the ED with complaints of increased fatigue, chest pressure, nausea and dizziness getting progressively worse over the last 2 weeks ? Unstable Angina vs dehydration vs GI etiology (recent abd US reviewed-minimal sludge and gallstones noted) or medication side effects -observe in telemetry -follow cardiac enzymes every 8 hr x 2 -daily EKG -EKG with returning pain -pt taken off ASA for side effects -hold Nitropaste as pt is borderline hypotensive -stress echo in AM -check orthostatics -NS + 20 mEq KCl @ 80 cc/hr -if all w/u neg, consider CT abd/pelvis to r/o GI cause Dementia -Continue Namenda 10 mg po BID Focal seizures -Continue Aptiom 200 mg daily-->scheduled to increase to 400 mg daily in 3 days CKD III-creatinine at baseline 1.4 DVT prophylaxis -Heparin 5000 u subQ BID -TEDS, SCDs CODE STATUS -LEVEL I FULL CODE This chart was completed in part utilizing [employer] Speech Voice Recognition software. Attempts were made to minimize the grammatical errors, random word insertions, pronoun errors and incomplete sentences. Any formal questions or concerns about the content, text or information contained within the body of this dictation should be directly addressed to the provider for clarification. Level of Care Telemetry Resuscitation Status FULL RESUSCITATION VTE Prophylaxis VTE Risk Assessment Done? Y/N: Yes Risk Level: Low Given or contraindicated: Unfractionated heparin SQ Additional Copies To Maegan Valencia M.D. Reviewed: Pt Seen/Exam by Me History Pt with worsening fatigue and intermittent chest pain. Pt states that since starting seizure meds about 1.5 yrs ago he has been overall more tired. It started out that he would need a short nap in the afternoons, but has since progressed. Over the last few months it has gotten to where he can only do something for about 5-10 minutes and then he becomes nauseated and fatigued to the point where he has to stop and go to bed. Since last Tuesday he has been sleeping about 20 hours a day, basically only getting up to eat. He has been working with neuro to find a seizure medication that he can tolerate as the prior meds have caused him severe nausea that was limiting his PO intake. He is currently on Aptiom, which while it does cause some nausea, it is much less than the others. He may have had a "light" seizure a few weeks ago, but it is not clear as he did not have typical seizure like activity. Dr. Jordan is planning to increase his Aptiom in a few days to continue titration. Pt has been having chest pain that is more of a central tightness. If he belches, it feels much better, but sometimes it will return. He notes that it gets worse with stress "like if I take a stressful phone call", but sometimes it comes for no real reason, sometimes with activity. He felt it starts similar to his reflux, but has been more intense. regularly checks his BP and HR. HR has been 40s-50s recently, as high as 70s at times. Systolic BP has been 80s-90s. Pt denies fever, SOB, abd pain, v/c/d, LE pain or swelling. ROS as noted above, otherwise neg. General Appearance: WD/WN, no apparent distress Respiratory: normal breath sounds, no respiratory distress Cardiovascular: normal peripheral pulses, no edema, bradycardia Gastrointestinal: non tender, soft Extremities: non-tender, no pedal edema Neurologic/Psychiatric: alert, normal mood/affect, oriented x 3 Skin Characteristics: normal color, warm/dry Assessment/Plan Agree with plan as outlined above CP: r/o unstable angina May be related to known hiatal hernia given improvement with belching Stress test pending Fatigue: possibly a side effect of seizure meds Pt with bradycardia and hypoTN noted that has been ongoing Possibly not perfusing well May need to discuss Aptiom with Dr. Jordan if cardiac assessment is WNL
[2017-04-27] MEDS ORDERED: ACETAMINOPHEN 325 MG TAB PO PRN (17:00)
[2017-04-27] MEDS ORDERED: ALUMINUM/MAGNESIUM/SIMETH (MAALOX MAX) 30 ML UDC PO PRN (17:00)
[2017-04-27] MEDS ORDERED: MAGNESIUM HYDROXIDE SUSP 30 ML UDC PO PRN (17:00)
[2017-04-27] MEDS ORDERED: ONDANSETRON INJ 2 MG/ML 2 ML VIAL IV PRN (17:00)
[2017-04-27 18:55] VITALS: BP 113/64; PULSE 57; TEMP 36.7; O2SAT 94
[2017-04-27 19:00] VITALS: BP 113/64; PULSE 57; TEMP 36.7; O2SAT 94; Ht 166.4 cm; Wt 69.6 kg
[2017-04-27] MEDS ORDERED: IV FLUIDS COMPLETED PRN (19:30)
[2017-04-27] MEDS: SODIUM CHLORIDE 0.9% 1000ML 1,000 ML IV SCH (19:50)
[2017-04-27 20:00] VITALS: O2SAT 94
[2017-04-27] MEDS: MEMANTINE 10 MG TAB PO SCH (21:22)
[2017-04-27] MEDS: HEPARIN SOD 5000 UNIT/0.5 ML CARP SQ SCH (21:25)
[2017-04-27 23:10] VITALS: BP 109/65; PULSE 52; TEMP 36.7; O2SAT 91
[2017-04-27 23:52] LABS: CKMB/CK RATIO 1.7 (0-3.0)
[2017-04-28 04:21] VITALS: BP 112/62; PULSE 51; TEMP 36.6; O2SAT 93
[2017-04-28] MEDS: MEMANTINE 10 MG TAB PO SCH (07:44)
[2017-04-28] MEDS: SODIUM CHLORIDE 0.9% 1000ML 1,000 ML IV SCH (07:47)
[2017-04-28] MEDS: HEPARIN SOD 5000 UNIT/0.5 ML CARP SQ SCH (07:52)
[2017-04-28 07:55] LABS: BASO % 0.4 %; BASO ABS # 0.03 K/uL (0-0.2); COMPLETE YES; EOS % 1.5 %; HEMATOCRIT 42.4 % (42-52); IG% 0.2 %; LYMPH ABS # 3.16 K/uL (1.2-3.4); MEAN CELL VOLUME 97.7 fL (80-100); MEAN CORPUSCULAR HEMOGLOBIN 33.4 pg (25-34); MEAN CORPUSCULAR HGB CONC 34.2 g/dl (32-36); MEAN PLATELET VOLUME 9.8 fL (7.4-10.4); MONO % 11.4 %; NEUT % 49.5 %; PLATELET COUNT 158 K/uL (130-400); RED BLOOD COUNT 4.34 M/uL (4.7-6.1); WHITE BLOOD COUNT 8.54 K/uL (4.8-10.8)
[2017-04-28 08:29] LABS: BLOOD UREA NITROGEN 19 mg/dl (7-18); BUN/CREATININE RATIO 13.5 (10-20); CARBON DIOXIDE 25 mmol/L (21-32); CHLORIDE 107 mmol/L (98-107); GLUCOSE 90 mg/dl (70-99); MAGNESIUM 2.4 mg/dl (1.8-2.4); SODIUM 142 mmol/L (136-145)
[2017-04-28 08:34] LABS: CKMB/CK RATIO 1.5 (0-3.0)
[2017-04-28 08:49] LABS: CALCIUM 9.4 mg/dl (8.5-10.1)
[2017-04-28 08:53] VITALS: BP 122/67; PULSE 52; TEMP 36.6; O2SAT 92
[2017-04-28] MEDS ORDERED: PANTOprazole SOD 40 MG TAB PO SCH (09:00)
[2017-04-28] MEDS ORDERED: POLYETHYLENE (MIRALAX) 17 GM PACK PO SCH (09:00)
[2017-04-28] MEDS ORDERED: DOBUTamine HCL 12.5 MG/ML 20 ML VIAL ONE (10:19)
[2017-04-28] MEDS ORDERED: METOPROLOL TARTRATE 1 MG/ML VIAL ONE (10:20)
[2017-04-28] MEDS ORDERED: PERFLUTREN LIPID MICROSPHERE (DEFINITY) IV ONE (10:27)
--- NOTE | 2017-04-28 12:37 | DOBUTAMINE ECHO ---
*NOTICE TO RECEIVING CONSTITUTION PARTY AGENCY This information is strictly Confidential and protected under [place] law. [place] law prohibits you from making any further disclosure of this information unless further disclosure is expressly permitted by the written consent of the person to whom it pertains or is authorized by law. A general authorization for the release of medical or other information is not sufficient for this purpose. Hospital accepts no responsibility if the information is made available to any other person, INCLUDING THE PATIENT. Interpretation Summary * Name: NICOL MONREAL Study Date: 04/28/2017 08:03 AM BP: 136/54 mmHg * Patient Location: .[facility]\S\N280\S\2 HR: 52 * : 1930 (M/d/yyyy) Gender: Male Height: 65 in * Age: 86 yrs Ethnicity: [place] Weight: 156 lb * Ordering Physician: Agatha Roche * Referring Physician: Prosper Robledo D.O. * Performed By: Laura Cartwright RDCS * * Reason For Study: CHEST PAIN * BSA: 1.8 m2 * The left ventricular ejection fraction increases normally with stress. The left ventricular end-systolic cavity size reduces post-stress (normal response). The left ventricular wall motion with stress is normal. * STRESS STUDY: Normal pharmacologic stress echocardiogram. No echocardiographic or ECG evidence of myocardial ischemia having achieved heart rate adequate for diagnostic purposes. Procedure Details * DOBUTAMINE ECHO, CPT#02010 * A contrast injection of Definity was performed to improve assessment of LV function. * Contrast was injected into an intravenous site in the left arm. * One vial of Definity ultrasound contrast was diluted in normal saline to a total volume of 10 ml. A total of '6' ml of solution was administered during imaging. * Lot # [id number] of Definity utilized for procedure. * Expiration date JUN 14. * The attending nurse who injected the contrast agent was JIHAN ALEJANDRA RN. Left Ventricle * The left ventricle is normal in size. * There is mild concentric left ventricular hypertrophy. * Ejection Fraction = 60-65%. * Left ventricular systolic function is normal. * A full diastolic examination was done with clinical findings of Class I diastolic dysfunction. * Resting wall motion: Normal. Stress wall motion: Appropriate increase in Left ventricular systolic function and decrease in cavity size. No stress induced segmental wall motion abnormalities. * The left ventricular ejection fraction increases normally with stress. The left ventricular end-systolic cavity size reduces post-stress (normal response). The left ventricular wall motion with stress is normal. * No regional wall motion abnormalities noted. Right Ventricle * The right ventricle is normal in size and function. Atria * The left atrial size is normal. * Right atrial size is normal. Mitral Valve * The mitral valve is normal. * The mitral valve is not well visualized. * There is no mitral valve stenosis. * There is mild mitral regurgitation. Tricuspid Valve * The tricuspid valve is normal. * There is mild tricuspid regurgitation. * Right ventricular systolic pressure is normal. Aortic Valve * The aortic valve is trileaflet. * The aortic valve opens well. * Aortic stenosis is absent. * No aortic regurgitation is present. Pulmonic Valve * The pulmonic valve is not well visualized. * The pulmonary valve is inadequately visualized, but the Doppler data is adequate for interpretation. * There is no significant pulmonary regurgitation. Great Vessels * The aortic root is normal size. Pericardium * There is no pericardial effusion. Stress Parameters * Sinus bradycardia, normal ST segments and T waves. * The stress ECG response was normal * Arrhythmia induced during stress: occasional PVC's. * Arrhythmia noted in recovery: occasional PVC's. * Rest heart rate was '52' BPM. * Rest blood pressure was '136/54' * Maximum heart rate achieved was 139 bpm. * Maximum heart rate was 103 % of maximum age-predicted heart rate. * Maximum blood pressure was '171/52' * Maximum Dobutamine infusion rate was '50' mcg/kg/min. * Dobutamine infusion was terminated due to achieving target heart rate * A total of 10 mg of IV Metoprolol was administered to reverse Dobutamine-induced tachycardia. MMode 2D Measurements and Calculations IVSd 1.5 cm IVSs 1.8 cm LVIDd 4.1 cm LVIDs 2.8 cm LVPWd 1.3 cm LVPWs 1.7 cm IVS/LVPW 1.1 FS 31.6 % EDV(Teich) 72.4 ml ESV(Teich) 28.9 ml EF(Teich) 60.1 % EDV(cubed) 66.8 ml ESV(cubed) 21.3 ml EF(cubed) 68.1 % % IVS thick 21.5 % % LVPW thick 29.4 % LV mass(C)d 215.5 grams LV mass(C)dI 121.1 grams/m\S\2 LV mass(C)s 191.3 grams LV mass(C)sI 107.5 grams/m\S\2 SV(Teich) 43.5 ml SI(Teich) 24.4 ml/m\S\2 SV(cubed) 45.4 ml SI(cubed) 25.5 ml/m\S\2 Ao root diam 3.8 cm Ao root area 11.4 cm\S\2 LA dimension 3.7 cm LA/Ao 0.97 LVAd ap4 26.3 cm\S\2 LVLd ap4 8.5 cm EDV(MOD-sp4) 65.6 ml EDV(sp4-el) 69.5 ml LVAs ap4 14.3 cm\S\2 LVLs ap4 6.7 cm ESV(MOD-sp4) 25.3 ml ESV(sp4-el) 25.9 ml EF(MOD-sp4) 61.4 % EF(sp4-el) 62.8 % LVAd ap2 28.5 cm\S\2 LVLd ap2 8.1 cm EDV(MOD-sp2) 80.7 ml EDV(sp2-el) 84.8 ml LVAs ap2 16.2 cm\S\2 LVLs ap2 6.8 cm ESV(MOD-sp2) 33.1 ml ESV(sp2-el) 32.9 ml EF(MOD-sp2) 59.0 % EF(sp2-el) 61.2 % LVLd %diff -4.11 % EDV(MOD-bp) 72.6 ml LVLs %diff 1.0 % ESV(MOD-bp) 29.1 ml EF(MOD-bp) 59.9 % SV(MOD-sp4) 40.3 ml SI(MOD-sp4) 22.6 ml/m\S\2 SV(MOD-sp2) 47.6 ml SI(MOD-sp2) 26.7 ml/m\S\2 SV(MOD-bp) 43.5 ml SI(MOD-bp) 24.5 ml/m\S\2 SV(sp4-el) 43.7 ml SI(sp4-el) 24.5 ml/m\S\2 SV(sp2-el) 51.8 ml SI(sp2-el) 29.1 ml/m\S\2 Doppler Measurements and Calculations MV E max maggie 55.3 cm/sec MV A max maggie 87.4 cm/sec MV E/A 0.63 MV dec time 0.35 sec Ao V2 max 110.6 cm/sec Ao max PG 4.9 mmHg Ao max PG (full) 2.0 mmHg LV V1 max PG 2.8 mmHg LV V1 max 84.4 cm/sec TR max maggie 251.0 cm/sec
--- NOTE | 2017-04-28 12:54 | Discharge Instructions ---
Discharge Instructions Date of Service Apr 28, 2017. Admission Reason for Admission: Unstable Angina Discharge Discharge Diagnosis / Problem: fatigue/nausea likely med side effect and anxiety Discharge Goals Goal(s): Diagnostic testing Activity Recommendations Activity Limitations: resume your previous activity . Instructions / Follow-Up Instructions / Follow-Up -we'll be working on getting you in with Dr Chau next week in regards to the Aptiom. since your seizure history is so complicated, it's far better for her to be making potential medication changes since that is her area of expertise and she knows you far better -certainly stress is playing a significant role as well - we know that stress is a form of energy, and if you don't do something to get rid of it, it doesn't go away--- and the effects add up and cause all sorts of problems (and nausea/ fatigue certainly are common symptoms from too much stress) ---once you're up to it, i highly recommend taking a walk every day - exercise has been proven to help reduce stress and alleviate symptoms of stress ---immediately, we strongly strongly recommend playing your guitar for a half hour a day - playing music also has been shown to be tremendously helpful with stress management; so until you're physically up to doing the walk as an alternative, we want you playing guitar every day to help manage the stress (going to your room and laying down is more of an "avoidance" technique than a management technique - it hides you from the stress symptoms and lets you "ride them out" but doesn't do anything to actually get the stress out - so it doesn' t really help at all in the big picture of true stress management) Current Hospital Diet Patient's current hospital diet: Regular Diet Discharge Diet Recommended Diet: Regular Diet Pending Studies Studies pending at discharge: yes List of pending studies: technically your stress test has not been formally read yet; it's basically never that the cardiopulmonary lab tells us things were OK and then the formal cardiology reading is different, but on the (extremely) off-chance that would be the case, we'd let you know right away Medical Emergencies . Who to Call and When: Medical Emergencies: If at any time you feel your situation is an emergency, please call 911 immediately. . Non-Emergent Contact Non-Emergency issues call your: Primary Care Provider, Neurologist (our nurse navigator will be working on getting you in next week - call tuesday morning if you haven't heard) . . "Provider Documentation" section prepared by Ru Franco. . VTE Core Measure Inpt VTE Proph given/why not?: Unfractionated heparin SQ
[2017-04-28 12:57] VITALS: BP 122/67; PULSE 52; TEMP 36.6; O2SAT 92
--- NOTE | 2017-04-28 18:58 | Discharge Summary ---
Discharge Summary Date of Service Apr 28, 2017. Discharge Summary Admission Date: April 27, 2017 at 19:19 Discharge Date: Apr 28, 2017 Discharge Disposition: Home Principal Diagnosis: fatigue and nausea - likely med ADR and anxiety/stress Procedures: stress echo: Interpretation Summary * Name: NICOL MONREAL Study Date: 04/28/2017 08:03 AM BP: 136/54 mmHg * Patient Location: .MED\\S\\N280\\S\\2 HR: 52 * : 1930 (M/d/yyyy) Gender: Male Height: 65 in * Age: 86 yrs Ethnicity: [place] Weight: 156 lb * Ordering Physician: Agatha Roche * Referring Physician: Prosper Robledo D.O. * Performed By: Laura Cartwright RDCS * * Reason For Study: CHEST PAIN * BSA: 1.8 m2 * The left ventricular ejection fraction increases normally with stress. The left ventricular end-systolic cavity size reduces post-stress (normal response) . The left ventricular wall motion with stress is normal. * STRESS STUDY: Normal pharmacologic stress echocardiogram. No echocardiographic or ECG evidence of myocardial ischemia having achieved heart rate adequate for diagnostic purposes. Procedure Details * DOBUTAMINE ECHO, CPT#86362 * A contrast injection of Definity was performed to improve assessment of LV function. * Contrast was injected into an intravenous site in the left arm. * One vial of Definity ultrasound contrast was diluted in normal saline to a total volume of 10 ml. A total of '6' ml of solution was administered during imaging. * Lot # [id number] of Definity utilized for procedure. * Expiration date 1 JUN 14. * The attending nurse who injected the contrast agent was JIHAN ALEJANDRA RN. Left Ventricle * The left ventricle is normal in size. * There is mild concentric left ventricular hypertrophy. * Ejection Fraction = 60-65%. * Left ventricular systolic function is normal. * A full diastolic examination was done with clinical findings of Class I diastolic dysfunction. * Resting wall motion: Normal. Stress wall motion: Appropriate increase in Left ventricular systolic function and decrease in cavity size. No stress induced segmental wall motion abnormalities. * The left ventricular ejection fraction increases normally with stress. The left ventricular end-systolic cavity size reduces post-stress (normal response) . The left ventricular wall motion with stress is normal. * No regional wall motion abnormalities noted. Right Ventricle * The right ventricle is normal in size and function. Atria * The left atrial size is normal. * Right atrial size is normal. Mitral Valve * The mitral valve is normal. * The mitral valve is not well visualized. * There is no mitral valve stenosis. * There is mild mitral regurgitation. Tricuspid Valve * The tricuspid valve is normal. * There is mild tricuspid regurgitation. * Right ventricular systolic pressure is normal. Aortic Valve * The aortic valve is trileaflet. * The aortic valve opens well. * Aortic stenosis is absent. * No aortic regurgitation is present. Pulmonic Valve * The pulmonic valve is not well visualized. * The pulmonary valve is inadequately visualized, but the Doppler data is adequate for interpretation. * There is no significant pulmonary regurgitation. Great Vessels * The aortic root is normal size. Pericardium * There is no pericardial effusion. Stress Parameters * Sinus bradycardia, normal ST segments and T waves. * The stress ECG response was normal * Arrhythmia induced during stress: occasional PVC's. * Arrhythmia noted in recovery: occasional PVC's. * Rest heart rate was '52' BPM. * Rest blood pressure was '136/54' * Maximum heart rate achieved was 139 bpm. * Maximum heart rate was 103 % of maximum age-predicted heart rate. * Maximum blood pressure was '171/52' * Maximum Dobutamine infusion rate was '50' mcg/kg/min. * Dobutamine infusion was terminated due to achieving target heart rate * A total of 10 mg of IV Metoprolol was administered to reverse Dobutamine- induced tachycardia. Last 24 Hours Test 04/27/17 23:15 04/28/17 07:10 Total Creatine Kinase 42 U/L 34 U/L Creatine Kinase MB 0.7 ng/ml 0.5 ng/ml Creatine Kinase MB Ratio 1.7 1.5 Troponin I < 0.015 ng/ml < 0.015 ng/ml White Blood Count 8.54 K/uL Red Blood Count 4.34 M/uL Hemoglobin 14.5 g/dL Hematocrit 42.4 % Mean Corpuscular Volume 97.7 fL Mean Corpuscular Hemoglobin 33.4 pg Mean Corpuscular Hemoglobin Concent 34.2 g/dl Platelet Count 158 K/uL Mean Platelet Volume 9.8 fL Neutrophils (%) (Auto) 49.5 % Lymphocytes (%) (Auto) 37.0 % Monocytes (%) (Auto) 11.4 % Eosinophils (%) (Auto) 1.5 % Basophils (%) (Auto) 0.4 % Neutrophils # (Auto) 4.23 K/uL Lymphocytes # (Auto) 3.16 K/uL Monocytes # (Auto) 0.97 K/uL Eosinophils # (Auto) 0.13 K/uL Basophils # (Auto) 0.03 K/uL RDW Standard Deviation 43.1 fL RDW Coefficient of Variation 12.1 % Immature Granulocyte % (Auto) 0.2 % Immature Granulocyte # (Auto) 0.02 K/uL Sodium Level 142 mmol/L Potassium Level 4.0 mmol/L Chloride Level 107 mmol/L Carbon Dioxide Level 25 mmol/L Anion Gap 10.0 mmol/L Blood Urea Nitrogen 19 mg/dl Creatinine 1.40 mg/dl Est Creatinine Clear Calc Drug Dose 33.6 ml/min Estimated GFR () 52.4 Estimated GFR (Non- 45.2 BUN/Creatinine Ratio 13.5 Random Glucose 90 mg/dl Calcium Level 9.4 mg/dl Magnesium Level 2.4 mg/dl CHEST ONE VIEW PORTABLE HISTORY: Evaluate Fever/Sepsis COMPARISON: Chest 11/30/2016. FINDINGS: The lungs are clear. Cardiac silhouette remains borderline enlarged. Low lung volumes. No pleural effusions. No pneumothorax. IMPRESSION: No significant change compared to the prior study. No acute process. Electronically signed by: Klever Goff M.D. 04/27/2017 2:55 PM Dictated Date/Time: 04/27/2017 2:53 PM Medication Reconciliation Continued Medications: Cyanocobalamin (Vitamin B12) 1,000 Mcg Tab 1000 MCG PO DAILY AT LUNCH Eslicarbazepine Acetate (Aptiom) 200 Mg Tab 200 MG PO HS Folic Acid (Folic Acid) 1 Mg Tab 1 MG PO HS Memantine (Namenda) 10 Mg Tab 10 MG PO BID, TAB Omeprazole (Prilosec) 20 Mg Capcr 20 MG PO DAILY, CAP Polyethylene Glycol 3350 (Miralax) 1 Pow Pow 17 GM PO QAM, #255 GM Simvastatin (Simvastatin) 40 Mg Tab 40 MG PO QPM, #90 Vitamin E (E-400) 400 Unit Cap 400 UNITS PO DAILY Discharge Exam Physical Exam: General Appearance: no apparent distress Eyes: EOMI ENT: hearing grossly normal Neck: trachea midline Respiratory/Chest: no respiratory distress, no accessory muscle use Extremities: normal inspection 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 enzymes negative x multiple sets, stress echo negative for ischemic findings. stable for discharge to home pt noted that he believes sx corrolate to when he was started on aptiom for seizures. also notes simultaneously that he's got a very long and complicated seizure hx and has tried and failed with multiple anticonvulsants. discussed that while it's plausible that his symptoms are being caused at least in part by side effect to the aptiom (see below as far as anxiety) it would be best for him to see neurologist to talk about med adjustments/changes given the complexity of his case // his primary neurologist knows him best. also as discussions with pt deepened, it was clear that he harbors a huge amount of anxiety - corroborated this. doesn't want meds. right now "stress management" is done by going to his room and laying down. discussed active stress management - recommended taking a walk once he's feeling good enough to do so, and playing guitar every day until he's doing well enough that he can take a walk as well. 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 Discharge Instructions Please refer to the electronic Patient Visit Report (Discharge Instructions) for additional information. Additional Copies To Maegan Valencia M.D.; Stacy Jordan D.O.
[2017-04-28] MEDS ORDERED: SIMVASTATIN 40 MG TAB PO SCH (21:00)
[2017-05-19] MEDS ORDERED: AMOX500C3 PO (14:58)
== END 2017-04-28 13:22 | disposition home or self-care (01) ==
LOC: ENRESERVTM → ENRESERVDT → C.EDB 14:08 → C.MED 19:19
PROVIDERS: ADMIT Family Medicine; ATTEND Family Medicine
DX: I20.0 Unstable angina (principal); F03.90 Unspecified dementia, unspecified severity, without behavioral disturbance, psychotic disturbance, mood disturbance, and anxiety; E78.00 Pure hypercholesterolemia, unspecified; K21.9 Gastro-esophageal reflux disease without esophagitis; K44.9 Diaphragmatic hernia without obstruction or gangrene; Z86.73 Personal history of transient ischemic attack (TIA), and cerebral infarction without residual deficits; Z83.3 Family history of diabetes mellitus; Z79.899 Other long term (current) drug therapy; G40.109 Localization-related (focal) (partial) symptomatic epilepsy and epileptic syndromes with simple partial seizures, not intractable, without status epilepticus; N18.3 Chronic kidney disease, stage 3 (moderate)

== ENCOUNTER 2017-05-22 13:31 | Emergency (ER) | payer OTHER ==
[~2017-05-22] VITALS: Ht 167.6 cm; Wt 70.0 kg
[~2017-05-22 13:31] MED LIST changes: +AMOX500C3 PO; -ASPI81TA28 PO; -CLX40 PO; -VITA400C15 PO; +VITACAP37 PO
[2017-05-22 13:35] VITALS: TEMP 36.6; Ht 167.6 cm; Wt 70.0 kg
[2017-05-22 14:48] LABS: BASO % 0.3 %; BASO ABS # 0.03 K/uL (0-0.2); COMPLETE YES; EOS % 1.4 %; IG% 0.3 %; LYMPH % 21.3 %; MEAN CELL VOLUME 98.3 fL (80-100); MEAN CORPUSCULAR HEMOGLOBIN 33.4 pg (25-34); MEAN PLATELET VOLUME 10.2 fL (7.4-10.4); MONO % 12.8 %; NEUT % 63.9 %; PLATELET COUNT 143 K/uL (130-400); RED BLOOD COUNT 4.58 M/uL (4.7-6.1)
[2017-05-22] MEDS ORDERED: BRIV25TA PO (14:58)
[2017-05-22] MEDS ORDERED: OMEP40CA41 PO (14:58)
[2017-05-22 15:01] LABS: URINE APPEARANCE CLEAR (CLEAR); URINE BILIRUBIN NEG (NEG); URINE COLOR DK YELLOW; URINE NITRITE NEG (NEG); URINE PH 5.5 (4.5-7.5); URINE SPECIFIC GRAVITY 1.017 (1.000-1.030); UROBILINOGEN NEG (NEG); ZZUR CULT IF INDIC CLEAN CATCH NO
[2017-05-22 15:03] LABS: BUN/CREATININE RATIO 10.1 (10-20); CREATININE 1.6 mg/dl (0.60-1.40); POTASSIUM 3.9 mmol/L (3.5-5.1)
[2017-05-22 15:05] LABS: MANUAL MICROSCOPIC REQUIRED? NO; REVIEW REQ? NO
[2017-05-22] MEDS ORDERED: FLUCONAZOLE 100 MG TAB PO STA (15:15)
[2017-05-22] MEDS ORDERED: MICO12CR TOP (15:51)
[2017-05-22 16:01] VITALS: BP 130/73; PULSE 62; O2SAT 96
--- NOTE | 2017-05-22 18:10 | EMERGENCY ROOM VISIT NOTE ---
History Report prepared by Gurvinder: Chante Bray Under the Supervision of: Dr. Ru Contreras D.O. First contact with patient: 13:50 Chief Complaint: PENILE DISCHARGE Stated Complaint: DISCHARGE IN PRIVATES Nursing Triage Summary: pt states " when taking shower this am had light carey drainage from penis and when he washed ot off his penis got sore" also states the drainage has continued.no change in urinary patterns. History of Present Illness The patient is a 86 year old male who presents to the Emergency Room with complaints of constant penile discharge beginning this morning. The patient states that when he woke up this morning and got into the shower he noticed that he had discharge on the head of his penis. He reports that it was a carey cream color and he washed it off and put a band aid over the head. He notes that it is still draining water and he is having penis soreness and some redness. Pt denies fevers, chest pain, shortness of breath, nausea, vomiting, diarrhea, pain with urination, new urinary symptoms, and melena. He states that he is not sexually active and has had no recent trauma. Source of History: patient Onset: this morning Position: other (penis) Quality: other (carey cream discharge) Timing: constant Associated Symptoms: No fevers, No chest pain, No SOB, No nausea, No vomiting, No diarrhea, No urinary symptoms Note: Pt complains of penis soreness and redness. Review of Systems See HPI for pertinent positives & negatives. A total of 10 systems reviewed and were otherwise negative. Past Medical & Surgical Medical Problems: (1) Confusion (2) Dementia (3) GERD (gastroesophageal reflux disease) (4) Hiatal hernia (5) High cholesterol (6) Hypoxia (7) Kidney disease (8) Kidney stones (9) Pneumonia (10) Seizure (11) Stomach problems (12) TIA (transient ischemic attack) Surgical Problems: (1) History of appendectomy (2) History of nephrolithotomy with removal of calculi (3) Hx of tonsillectomy Family History Diabetes mellitus MOTHER Social History Smoking Status: Never Smoker Alcohol Use: none Drug Use: none Marital Status: Housing Status: lives with family Occupation Status: retired Current/Historical Medications Scheduled Amoxicillin (Amoxil), 1 CAP PO TID Brivaracetam (Briviact), 25 MG PO BID Cyanocobalamin (Vitamin B12), 1,000 MCG PO DAILY AT LUNCH Folic Acid (Folic Acid), 1 MG PO DAILY Memantine (Namenda), 10 MG PO BID Miconazole Nitrate (Topical) (Antifungal), 1 TUBE TOP BID Omeprazole (Prilosec), 40 MG PO DAILY Polyethylene Glycol 3350 (Miralax), 17 GM PO QAM Simvastatin (Simvastatin), 40 MG PO QPM Vitamin E (E-400), 400 UNITS PO DAILY Allergies Coded Allergies: Aspirin (Verified Adverse Reaction, Severe, STOMACH CRAMPS WITH 325MG, ) Physical Exam Vital Signs Date Time Temp Pulse Resp B/P (MAP) Pulse Ox O2 Delivery O2 Flow Rate FiO2 05/22/17 16:01 62 16 130/73 96 05/22/17 15:35 60 18 125/84 92 Room Air 05/22/17 13:35 36.6 68 18 133/78 95 Room Air Physical Exam GENERAL: sitting up in bed, alert, well appearing, well nourished, no distress, non-toxic EYE EXAM: normal conjunctiva OROPHARYNX: no exudate, no erythema, lips, buccal mucosa, and tongue normal and mucous membranes are moist LUNGS: Clear to auscultation. Normal chest wall mechanics HEART: no murmurs, S1 normal and S2 normal ABDOMEN: abdomen soft, non-tender, normo-active bowel sounds, no masses, no rebound or guarding. BACK: Back is symmetrical on inspection and there is no deformity, no midline tenderness, no CVA tenderness. SKIN: no rashes and no bruising UPPER EXTREMITIES: upper extremities are grossly normal. LOWER EXTREMITIES: No pitting edema. NEURO EXAM: Normal sensorium, cranial nerves II-XII grossly intact, normal speech, no gross weakness of arms, no gross weakness of legs. : Normal testicles, uncircumcised penis with erythema around foreskin and along the head of the penis with several small white spots throughout the red erythematous penis which is moist. No penile discharge. Medical Decision & Procedures Laboratory Results 05/22/17 14:35 Red Blood Count 4.58, Mean Corpuscular Volume 98.3, Mean Corpuscular Hemoglobin 33.4, Mean Corpuscular Hemoglobin Concent 34.0, Mean Platelet Volume 10.2, Neutrophils (%) (Auto) 63.9, Lymphocytes (%) (Auto) 21.3, Monocytes (%) (Auto) 12.8, Eosinophils (%) (Auto) 1.4, Basophils (%) (Auto) 0.3, Neutrophils # (Auto ) 6.91, Lymphocytes # (Auto) 2.30, Monocytes # (Auto) 1.38, Eosinophils # (Auto ) 0.15, Basophils # (Auto) 0.03 05/22/17 14:35 Test 05/22/17 14:00 05/22/17 14:35 White Blood Count 10.80 K/uL (4.8-10.8) Red Blood Count 4.58 M/uL (4.7-6.1) Hemoglobin 15.3 g/dL (14.0-18.0) Hematocrit 45.0 % (42-52) Mean Corpuscular Volume 98.3 fL (80-100) Mean Corpuscular Hemoglobin 33.4 pg (25-34) Mean Corpuscular Hemoglobin Concent 34.0 g/dl (32-36) Platelet Count 143 K/uL (130-400) Mean Platelet Volume 10.2 fL (7.4-10.4) Neutrophils (%) (Auto) 63.9 % Lymphocytes (%) (Auto) 21.3 % Monocytes (%) (Auto) 12.8 % Eosinophils (%) (Auto) 1.4 % Basophils (%) (Auto) 0.3 % Neutrophils # (Auto) 6.91 K/uL (1.4-6.5) Lymphocytes # (Auto) 2.30 K/uL (1.2-3.4) Monocytes # (Auto) 1.38 K/uL (0.11-0.59) Eosinophils # (Auto) 0.15 K/uL (0-0.5) Basophils # (Auto) 0.03 K/uL (0-0.2) RDW Standard Deviation 43.9 fL (36.4-46.3) RDW Coefficient of Variation 12.3 % (11.5-14.5) Immature Granulocyte % (Auto) 0.3 % Immature Granulocyte # (Auto) 0.03 K/uL (0.00-0.02) Urine Color DK YELLOW Urine Appearance CLEAR (CLEAR) Urine pH 5.5 (4.5-7.5) Urine Specific [place] 1.017 (1.000-1.030) Urine Protein NEG (NEG) Urine Glucose (UA) NEG (NEG) Urine Ketones NEG (NEG) Urine Occult Blood 1+ (NEG) Urine Nitrite NEG (NEG) Urine Bilirubin NEG (NEG) Urine Urobilinogen NEG (NEG) Urine Leukocyte Esterase SMALL (NEG) Urine WBC (Auto) 1-5 /hpf (0-5) Urine RBC (Auto) 5-10 /hpf (0-4) Urine Hyaline Casts (Auto) 1-5 /lpf (0-5) Urine Epithelial Cells (Auto) 10-20 /lpf (0-5) Urine Bacteria (Auto) NEG (NEG) Anion Gap 7.0 mmol/L (3-11) Est Creatinine Clear Calc Drug Dose 29.9 ml/min Estimated GFR () 44.6 Estimated GFR (Non- 38.4 BUN/Creatinine Ratio 10.1 (10-20) Calcium Level 9.0 mg/dl (8.5-10.1) Laboratory results per my review. Medications Administered Medications (Trade) Dose Ordered Sig/Saundra Route Start Time Stop Time Status Last Admin Dose Admin Fluconazole (Diflucan Tab) 150 mg NOW STAT PO 05/22/17 15:15 05/22/17 15:17 DC 05/22/17 15:32 150 MG ED Course ED COURSE: Vital signs were reviewed and normal The patients medical record was reviewed The above diagnostic studies were performed and reviewed. ED treatments and interventions as stated above. 1350: The patient was evaluated in room A4B. A complete history and physical examination was performed. 1515: Diflucan Tab 150mg PO. 1554: I spoke to Dr. Bolaños. He suggested starting an antifungal and would like him to follow up this week. he agrees with the treatment plan. 1602: Upon reevaluation, the patient is doing well. I discussed my findings with the patient and he understands and agrees with the treatment plan. Based on the patients age, coexisting illnesses, exam and lab findings the decision to treat as an outpatient was made. The patient remained stable while under my care. The patient appeared well at the time of discharge. Medical Decision Differential diagnosis includes STD, UTI, fungal infection, bacterial infection. Medication Reconciliation: I attest that I have personally reviewed the patient' s current medication list. Blood pressure screening: Patient was found to have normal blood pressure on screening and does not require follow-up. Patient is an 86-year-old male who presents the ER for penile discharge. He notes he is not sexually active. He noticed it today. On exam he does have erythema of the glands and on the internal portion of the foreskin when withdrawn. No obvious penile discharge. Patient is currently on Augmentin which will cover any staph or strep infection. I do favor this is fungal. I discussed with urology and they agree. CBC and BMP was unremarkable. Normal blood sugar. Patient was given fluconazole and placed on a topical cream. Instructed to follow with urology within 3 days. Discussed with Pt concerning signs and symptoms to watch out for. Pt was instructed to follow up with their PCP and discussed with the patient their option to return to the ED at anytime for persistent or worsening symptoms. The appropriate anticipatory guidance and out-patient management, including indications for return to the emergency department, were explained at length to the patient and understood. Consults Time Called: [id number] Consulting Physician: Dr. Bolaños - urology Returned Call: [phone] Bolaños. He suggested starting an antifungal and would like him to follow up this week. he agrees with the treatment plan. Impression Primary Impression: Bernie Hesteribe Attestation The scribe's documentation has been prepared under my direction and personally reviewed by me in its entirety. I confirm that the note above accurately reflects all work, treatment, procedures, and medical decision making performed by me. Departure Information Dispostion Home / Self-Care Prescriptions Miconazole Nitrate (Topical) (ANTIFUNGAL) 2 % Cre 1 TUBE TOP BID for 10 Days Prov: Ru Contreras, 05/22/17 Referrals Maegan Valencia M.D. (PCP) Forms HOME CARE DOCUMENTATION FORM, IMPORTANT VISIT INFORMATION, WORK / SCHOOL INSTRUCTIONS Patient Instructions ED [facility] Additional Instructions Please follow up with your primary care doctor with in the next 24 hours. Any worsening of your symptoms, please return to the ED immediately. This includes worsening erythema, inability urinate, worsening pain, fevers greater than 100.4 , or any other concerning signs or symptoms from your standpoint. Please apply antifungal cream as prescribed. Please continue Augmentin.
[2017-05-24 15:23] LABS: CHLAMYDIA TRACH RNA*** NOT DETECTED (NOT DETECTED); GC (NEIS GONORRHOEAE)RNA** NOT DETECTED (NOT DETECTED)
== END 2017-05-22 16:02 | disposition home or self-care (01) ==
LOC: C.EDB 13:32 → C.EDA 16:02
DX: N48.1 Balanitis (principal); K21.9 Gastro-esophageal reflux disease without esophagitis; E78.00 Pure hypercholesterolemia, unspecified; F03.90 Unspecified dementia, unspecified severity, without behavioral disturbance, psychotic disturbance, mood disturbance, and anxiety; Z87.01 Personal history of pneumonia (recurrent); Z86.73 Personal history of transient ischemic attack (TIA), and cerebral infarction without residual deficits; Z87.442 Personal history of urinary calculi; Z90.89 Acquired absence of other organs; Z98.890 Other specified postprocedural states; Z83.3 Family history of diabetes mellitus; Z79.899 Other long term (current) drug therapy

== ENCOUNTER 2017-07-05 15:52 | Emergency (ER) | payer OTHER ==
[~2017-07-05] VITALS: Ht 170.2 cm; Wt 67.1 kg
[~2017-07-05 15:52] MED LIST changes: +BRIV25TA PO; -ESLI1TAB PO; +MICO12CR TOP; +OMEP40CA41 PO; -PRLSR20 PO
[2017-07-05 15:58] VITALS: TEMP 36.6; Ht 170.2 cm; Wt 67.1 kg
[2017-07-05] MEDS ORDERED: SODIUM CHLORIDE 0.9% 1000ML 1,000 ML IV STA (16:14)
[2017-07-05] MEDS ORDERED: SODIUM CHLORIDE 0.9% 1000ML 250 ML IV STA (16:14)
--- NOTE | 2017-07-05 16:19 | EMERGENCY ROOM VISIT NOTE ---
History Report prepared by Gurvinder: Dell Fitzgerald Under the Supervision of: Dr. Vitaly Martines M.D. First contact with patient: 16:05 Chief Complaint: DIZZY Stated Complaint: CHILLS,DIZZY,NAUSEA History of Present Illness The patient is an 86 year old male who presents to the Emergency Room with complaints of worsening dizziness that started over 2 years ago ever since he started having seizures. The patient says that he gets dizzy and nauseated any time he gets up to "do anything". He says that he loses his balance very easily , but he denies that the room is spinning. He adds that he has been having blurry vision, but his notes that the patient has poor vision. The patient says he has been groggy and tired all the time, and any exertion makes him even more fatigued. He states that he gets chills in his shoulders which go down his waist every time he starts getting a seizure. The patient's says that the patient has had intermittent 30 second seizures for the past 2 years, and during the seizures, the patient stares off and does not respond to questions. He is not unconscious however. The patient does not bite his tongue or have urinary incontinence during the episodes. The patient's last seizure was 3 days ago. The patient had his seizure medication discontinued a month ago because the patient was so nauseous, but the patient has still had the nausea. Per the patient's , the patient's fatigue has worsened recently, and he is in bed 20 hours per day. The patient denies any headaches, chest pain, melena, hematochezia, or urinary symptoms. The patient is not on any blood thinners. He had a stress test a month ago, which checked out fine. He adds that he has bad "nerves" and anxiety, which may be the cause of some of his symptoms. Source of History: patient, spouse/significant other Onset: Over 2 years ago Position: other (global - dizziness) Quality: other (off balance) Timing: worsening Modifying Factors (Worsening): exertion, movement Modifying Factors (Relieving): rest Associated Symptoms: + chills, + nausea, + fatigue, No LOC, No headache, No chest pain, No melena, No hematochezia, No urinary symptoms Note: Associated symptoms: "Seizure episodes" per patient. Blurry vision. Review of Systems See HPI for pertinent positives & negatives. A total of 10 systems reviewed and were otherwise negative. Past Medical & Surgical Medical Problems: (1) Confusion (2) Dementia (3) GERD (gastroesophageal reflux disease) (4) Hiatal hernia (5) High cholesterol (6) Hypoxia (7) Kidney disease (8) Kidney stones (9) Pneumonia (10) Seizure (11) Stomach problems (12) TIA (transient ischemic attack) Surgical Problems: (1) History of appendectomy (2) History of nephrolithotomy with removal of calculi (3) Hx of tonsillectomy Old medical records were reviewed. Nurse's notes were reviewed and I agree with. Family History Diabetes mellitus MOTHER Social History Smoking Status: Never Smoker Alcohol Use: none Drug Use: none Marital Status: Housing Status: lives with family Occupation Status: retired Current/Historical Medications Scheduled Cyanocobalamin (Vitamin B12), 1,000 MCG PO DAILY AT LUNCH Folic Acid (Folic Acid), 1 MG PO DAILY Memantine (Namenda), 10 MG PO BID Multivitamin (Multivitamin), 1 TAB PO DAILY Omeprazole (Prilosec), 40 MG PO DAILY Polyethylene Glycol 3350 (Miralax), 17 GM PO QAM Simvastatin (Simvastatin), 40 MG PO QPM Vitamin E (E-400), 400 UNITS PO DAILY Allergies Coded Allergies: Aspirin (Verified Adverse Reaction, Severe, STOMACH CRAMPS WITH 325MG, 07/05) Physical Exam Vital Signs Date Time Temp Pulse Resp B/P (MAP) Pulse Ox O2 Delivery O2 Flow Rate FiO2 07/05/17 19:02 62 15 133/79 95 07/05/17 18:49 58 131/70 62 141/75 62 133/79 07/05/17 18:18 59 15 131/75 95 Room Air 07/05/17 16:54 60 16 111/72 95 Room Air 07/05/17 16:24 63 07/05/17 15:58 36.6 66 18 113/76 95 Room Air Physical Exam General: Well developed well nourished non ill-appearing older male in no acute distress, breathing comfortably on room air. Normal speech. Answers questions appropriately. Alert or 3. Normal level of consciousness HEENT: Normal cephalic atraumatic. Pupils are equal round and reactive to light. Sclerae are anicteric. No nystagmus. Extraocular movements are intact. Oropharynx is pink with moist mucous membranes. No swelling of the mouth lips or tongue. Neck: Supple with a midline trachea. No meningeal signs or stiffness, no JVD or bruits. No Stridor. Chest: Clear to auscultation bilaterally. No wheezes or rhonchi. No increased work of breathing. Heart: regular rate and rhythm. Abdomen: Soft nontender, nondistended without rebound guarding or rigidity. Extremities: No cyanosis clubbing or edema. No calf tenderness or assymetry Spine/Back. Non tender to palpation. No CVA tenderness Skin: Good turgor without rashes. Neurologic exam: Cranial nerves two through 12 are intact. Motor and sensation are intact and symmetrical throughout. No tremor. Medical Decision & Procedures ER Provider Diagnostic Interpretation: Radiology results as stated below per my review and radiologist interpretation: HEAD WITHOUT CONTRAST (CT) CT DOSE: 614.27 mGy.cm HISTORY: Mental status change eval for dizziness TECHNIQUE: Multiaxial CT images of the head were performed without the use of intravenous contrast. A dose lowering technique was utilized adhering to the principles of ALARA. Comparison: 12/10/2016 Findings: The paranasal sinuses and mastoid air cells are clear. The calvarium and skull base are intact. The ventricles and sulci are within normal limits. There is no mass, hematoma, midline shift, or acute infarct. Mild chronic small vessel change unaltered from the prior study. No new or interval finding. Impression: Age-related change. No acute intracranial abnormality. No change from the prior exam. The above report was generated using voice recognition software. It may contain grammatical, syntax or spelling errors. Electronically signed by: Khurram Quiros M.D. 07/05/2017 4:50 PM Dictated Date/Time: 07/05/2017 4:49 PM CHEST ONE VIEW PORTABLE CLINICAL HISTORY: CHEST PAIN dyspnea COMPARISON STUDY: 04/27/2017 FINDINGS: The bones soft tissues and hemidiaphragms are normal. The cardiomediastinal silhouette is normal. The lungs are clear. The pulmonary vasculature is normal. Small calcific pleural scar left midlung unchanged IMPRESSION: Negative chest. The above report was generated using voice recognition software. It may contain grammatical, syntax or spelling errors. Electronically signed by: Khurram Quiros M.D. 07/05/2017 4:47 PM Dictated Date/Time: 07/05/2017 4:47 PM Laboratory Results 07/05/17 16:25 Red Blood Count 4.62, Mean Corpuscular Volume 97.4, Mean Corpuscular Hemoglobin 34.6, Mean Corpuscular Hemoglobin Concent 35.6, Mean Platelet Volume 10.2, Neutrophils (%) (Auto) 52.7, Lymphocytes (%) (Auto) 34.3, Monocytes (%) (Auto) 11.9, Eosinophils (%) (Auto) 0.7, Basophils (%) (Auto) 0.2, Neutrophils # (Auto ) 5.61, Lymphocytes # (Auto) 3.65, Monocytes # (Auto) 1.27, Eosinophils # (Auto ) 0.07, Basophils # (Auto) 0.02 07/05/17 16:25 Test 07/05/17 16:15 07/05/17 16:25 07/05/17 16:32 Urine Color YELLOW Urine Appearance CLOUDY (CLEAR) Urine pH 7.0 (4.5-7.5) Urine Specific [place] 1.014 (1.000-1.030) Urine Protein NEG (NEG) Urine Glucose (UA) NEG (NEG) Urine Ketones NEG (NEG) Urine Occult Blood NEG (NEG) Urine Nitrite NEG (NEG) Urine Bilirubin NEG (NEG) Urine Urobilinogen NEG (NEG) Urine Leukocyte Esterase NEG (NEG) Urine WBC (Auto) 0 /hpf (0-5) Urine RBC (Auto) 0-4 /hpf (0-4) Urine Hyaline Casts (Auto) 0 /lpf (0-5) Urine Epithelial Cells (Auto) 0-5 /lpf (0-5) Urine Bacteria (Auto) NEG (NEG) White Blood Count 10.64 K/uL (4.8-10.8) Red Blood Count 4.62 M/uL (4.7-6.1) Hemoglobin 16.0 g/dL (14.0-18.0) Hematocrit 45.0 % (42-52) Mean Corpuscular Volume 97.4 fL (80-100) Mean Corpuscular Hemoglobin 34.6 pg (25-34) Mean Corpuscular Hemoglobin Concent 35.6 g/dl (32-36) Platelet Count 162 K/uL (130-400) Mean Platelet Volume 10.2 fL (7.4-10.4) Neutrophils (%) (Auto) 52.7 % Lymphocytes (%) (Auto) 34.3 % Monocytes (%) (Auto) 11.9 % Eosinophils (%) (Auto) 0.7 % Basophils (%) (Auto) 0.2 % Neutrophils # (Auto) 5.61 K/uL (1.4-6.5) Lymphocytes # (Auto) 3.65 K/uL (1.2-3.4) Monocytes # (Auto) 1.27 K/uL (0.11-0.59) Eosinophils # (Auto) 0.07 K/uL (0-0.5) Basophils # (Auto) 0.02 K/uL (0-0.2) RDW Standard Deviation 43.4 fL (36.4-46.3) RDW Coefficient of Variation 12.4 % (11.5-14.5) Immature Granulocyte % (Auto) 0.2 % Immature Granulocyte # (Auto) 0.02 K/uL (0.00-0.02) Anion Gap 8.0 mmol/L (3-11) Est Creatinine Clear Calc Drug Dose 35.4 ml/min Estimated GFR () 52.4 Estimated GFR (Non- 45.2 BUN/Creatinine Ratio 14.4 (10-20) Calcium Level 9.4 mg/dl (8.5-10.1) Total Bilirubin 1.7 mg/dl (0.2-1) Direct Bilirubin 0.4 mg/dl (0-0.2) Aspartate Amino Transf (AST/SGOT) 22 U/L (15-37) Alanine Aminotransferase (ALT/SGPT) 19 U/L (12-78) Alkaline Phosphatase 70 U/L (45-117) Total Creatine Kinase 50 U/L (39-308) Creatine Kinase MB < 0.5 ng/ml (0.5-3.6) Creatine Kinase MB Ratio (0-3.0) Troponin I < 0.015 ng/ml (0-0.045) Total Protein 6.6 gm/dl (6.4-8.2) Albumin 3.7 gm/dl (3.4-5.0) Lipase 78 U/L (73-393) Thyroid Stimulating Hormone (TSH) 1.580 uIu/ml (0.300-4.500) Bedside Troponin I < 0.030 ng/ml (0-0.045) Laboratory studies as stated above per my review. Medications Administered Medications (Trade) Dose Ordered Sig/Saundra Route Start Time Stop Time Status Last Admin Dose Admin Sodium Chloride 250 ml @ 999 mls/hr Q16M STAT IV 07/05/17 16:14 07/05/17 16:29 DC 07/05/17 16:53 999 MLS/HR Sodium Chloride 1,000 ml @ 100 mls/hr Q10H STAT IV 07/05/17 16:14 07/05/17 20:08 DC 07/05/17 17:15 100 MLS/HR Sodium Chloride 500 ml @ 999 mls/hr Q31M STAT IV 07/05/17 18:09 07/05/17 18:39 DC 07/05/17 18:19 999 MLS/HR ECG Indication: nausea Rate (beats per minute): 62 Rhythm: normal sinus Findings: PVC (occasional), no acute ischemic change Change: no significant change (compared to 04/28/17) ED Course 1606: Past medical records reviewed. The patient was evaluated in room A11B, and a complete history and physical examination were performed. 1614: Ordered NSS 1000 ml @ 100 mls/hr IV, NSS 250 ml @ 999 mls/hr IV. 1809: Ordered NSS 500 ml @ 999 mls/hr IV. 1812: I reevaluated the patient and he is feeling okay. 1857: I reevaluated the patient and he is walking around and looks good. The patient's thinks that the patient is anxious. The patient verbally expressed understanding and agreement of the treatment plan. The patient will be discharged. Medical Decision Differentials include, but are not limited to; anxiety, seizure, dehydration, infection, electrolyte or metabolic abnormality, cardiac disease. This patient comes in as described above. He's been feeling dizzy for quite some time. It's possible that does have some seizures although looking through the neurology known it sounds like this is uncertain and may be partial and not generalized. He stopped the medications about a month ago thinking this was causing him to feel dizzy intermittently and he does not feel better he also has dementia history. He looks well on exam is afebrile stable vital signs. He has a normal neurologic exam. IV access established. EKG, chest x-ray, head CT and multiple blood tests was obtained as well as urinalysis and culture. He was hydrated with IV normal saline and reassessed frequently. He has remained stable. CAT scan of his head is unremarkable. EKG does not suggest acute coronary syndrome or arrhythmia. He has no acute electrolyte or metabolic abnormalities. He has nothing to suggest infection or sepsis. His workup was completely benign. Urinalysis is unremarkable. He was able to ambulate without difficulty . He was was hydrated with IV normal saline and feels better. I think there is a big anxiety component here and his agrees. He's been tried on multiple medications but has had trouble with all them I think he needs to follow-up with his regular doctor and knows his history and he can return to ER if: increasing pain, fever or chills, worsening of symptoms, any new problems or concerns. He was happy the plan and discharged to home. Medication Reconcilliation Current Medication List: was personally reviewed by me Blood Pressure Screening Patient's blood pressure: Normal blood pressure Impression Primary Impression: Dizziness Additional Impression: Anxiousness Scribe Attestation The scribe's documentation has been prepared under my direction and personally reviewed by me in its entirety. I confirm that the note above accurately reflects all work, treatment, procedures, and medical decision making performed by me. Departure Information Dispostion Home / Self-Care Referrals Maegan Valencia M.D. (PCP) Patient Instructions My [facility] Additional Instructions Rest. Drink plenty of fluids. Be careful getting up and down. Return if: Worsening of symptoms, fever or chills, shortness of breath, any new problems or concerns. Follow-up with your doctor this week for recheck Problem Qualifiers
[2017-07-05 16:37] LABS: URINE APPEARANCE CLOUDY (CLEAR); URINE BILIRUBIN NEG (NEG); URINE COLOR YELLOW; URINE EPITHELIAL CELL AUTO 0-5 /lpf (0-5); URINE NITRITE NEG (NEG); URINE SPECIFIC GRAVITY 1.014 (1.000-1.030); UROBILINOGEN NEG (NEG)
[2017-07-05 16:40] LABS: BASO % 0.2 %; BASO ABS # 0.02 K/uL (0-0.2); COMPLETE YES; EOS % 0.7 %; IG% 0.2 %; LYMPH % 34.3 %; LYMPH ABS # 3.65 K/uL (1.2-3.4); MEAN CELL VOLUME 97.4 fL (80-100); MEAN CORPUSCULAR HEMOGLOBIN 34.6 pg (25-34); MEAN CORPUSCULAR HGB CONC 35.6 g/dl (32-36); MEAN PLATELET VOLUME 10.2 fL (7.4-10.4); MONO % 11.9 %; NEUT % 52.7 %; PLATELET COUNT 162 K/uL (130-400); RED BLOOD COUNT 4.62 M/uL (4.7-6.1); WHITE BLOOD COUNT 10.64 K/uL (4.8-10.8)
[2017-07-05 16:48] LABS: MANUAL MICROSCOPIC REQUIRED? NO; REVIEW REQ? NO
--- NOTE | 2017-07-05 16:49 | DIAGNOSTIC IMAGING REPORT ---
CHEST ONE VIEW PORTABLE CLINICAL HISTORY: CHEST PAIN dyspnea COMPARISON STUDY: 04/27/2017 FINDINGS: The bones soft tissues and hemidiaphragms are normal. The cardiomediastinal silhouette is normal. The lungs are clear. The pulmonary vasculature is normal. Small calcific pleural scar left midlung unchanged IMPRESSION: Negative chest. The above report was generated using voice recognition software. It may contain grammatical, syntax or spelling errors. Electronically signed by: Khurram Quiros M.D. 07/05/2017 4:47 PM Dictated Date/Time: 07/05/2017 4:47 PM
--- NOTE | 2017-07-05 16:52 | DIAGNOSTIC IMAGING REPORT ---
HEAD WITHOUT CONTRAST (CT) CT DOSE: 614.27 mGy.cm HISTORY: Mental status change eval for dizziness TECHNIQUE: Multiaxial CT images of the head were performed without the use of intravenous contrast. A dose lowering technique was utilized adhering to the principles of ALARA. Comparison: 12/10/2016 Findings: The paranasal sinuses and mastoid air cells are clear. The calvarium and skull base are intact. The ventricles and sulci are within normal limits. There is no mass, hematoma, midline shift, or acute infarct. Mild chronic small vessel change unaltered from the prior study. No new or interval finding. Impression: Age-related change. No acute intracranial abnormality. No change from the prior exam. The above report was generated using voice recognition software. It may contain grammatical, syntax or spelling errors. Electronically signed by: Khurram Quiros M.D. 07/05/2017 4:50 PM Dictated Date/Time: 07/05/2017 4:49 PM
[2017-07-05 16:56] LABS: ALT/SGPT 19 U/L (12-78); BLOOD UREA NITROGEN 20 mg/dl (7-18); BUN/CREATININE RATIO 14.4 (10-20); CALCIUM 9.4 mg/dl (8.5-10.1); CARBON DIOXIDE 22 mmol/L (21-32); CHLORIDE 109 mmol/L (98-107); GLUCOSE 95 mg/dl (70-99); POTASSIUM 3.8 mmol/L (3.5-5.1); SODIUM 139 mmol/L (136-145)
[2017-07-05 17:07] LABS: ALKALINE PHOSPHATASE 70 U/L (45-117); AST/SGOT 22 U/L (15-37)
[2017-07-05] MEDS ORDERED: MULT-506 PO (17:23)
[2017-07-05] MEDS ORDERED: SODIUM CHLORIDE 0.9% 1000ML 500 ML IV STA (18:09)
[2017-07-05 19:02] VITALS: BP 133/79; PULSE 62; O2SAT 95
== END 2017-07-05 19:02 | disposition home or self-care (01) ==
LOC: C.EDB 15:54 → C.EDA 19:02
DX: R42 Dizziness and giddiness (principal); F41.9 Anxiety disorder, unspecified; R56.9 Unspecified convulsions; F03.90 Unspecified dementia, unspecified severity, without behavioral disturbance, psychotic disturbance, mood disturbance, and anxiety; K21.9 Gastro-esophageal reflux disease without esophagitis; K44.9 Diaphragmatic hernia without obstruction or gangrene; E78.5 Hyperlipidemia, unspecified; Z87.442 Personal history of urinary calculi; Z86.73 Personal history of transient ischemic attack (TIA), and cerebral infarction without residual deficits; Z83.3 Family history of diabetes mellitus; Z79.899 Other long term (current) drug therapy

== ENCOUNTER 2017-09-18 15:57 | Emergency (ER) | payer OTHER ==
[~2017-09-18] VITALS: Ht 170.2 cm; Wt 67.7 kg
[~2017-09-18 15:57] MED LIST changes: -AMOX500C3 PO; -BRIV25TA PO; -MICO12CR TOP; +MULT-506 PO
[2017-09-18 16:12] VITALS: TEMP 37.2; Ht 170.2 cm; Wt 67.7 kg
[2017-09-18] MEDS ORDERED: SODIUM CHLORIDE 0.9% 500ML 500 ML IV STA (16:24)
--- NOTE | 2017-09-18 16:29 | EMERGENCY ROOM VISIT NOTE ---
History Report prepared by Gurvinder: Esau Jolley Under the Supervision of: Dr. Armando Vitale M.D. First contact with patient: 16:18 Chief Complaint: NEURO SYMPTOMS Stated Complaint: TINGLING OVER ENTIRE BODY, HX SEIZURE Nursing Triage Summary: patient reports "tingling all over body since sobia since a seizure", hx of seizures, per , "the tingling is sometimes preceding the seizures but not always" History of Present Illness The patient is a 86 year old male who presents to the Emergency Room with complaints of tingling to his lower back that began three days ago. 3 days ago, the patient's states that he had a seizure. She describes this episode as the patient having a glazed look in his eyes and being unresponsive. This lasted for a short amount of time and he was mildly confused when he came around. Since then, he has had intermittent tingling to his lower back and abdomen that radiate diffusely in his body. He has had this tingling sensation for about 3 years with extensive studies done that were all negative. However, this is first time his tingling has lasted this long. He denies any fevers, cough, vomiting, diarrhea, or abnormal urinary symptoms. He is occasionally nauseated when he eats. He has a history of Dementia and has recently been taken off of his seizure medication. This was because he was experiencing side effects from the medications. Source of History: patient Onset: three days ago Position: abdomen (lower), back (lower) Symptom Intensity: moderate Quality: other (Tingling) Timing: constant Associated Symptoms: + nausea, No fevers, No cough, No vomiting, No diarrhea , No urinary symptoms Review of Systems See HPI for pertinent positives & negatives. A total of 10 systems reviewed and were otherwise negative. Past Medical & Surgical Medical Problems: (1) Confusion (2) Dementia (3) GERD (gastroesophageal reflux disease) (4) Hiatal hernia (5) High cholesterol (6) Hypoxia (7) Kidney disease (8) Kidney stones (9) Pneumonia (10) Seizure (11) Stomach problems (12) TIA (transient ischemic attack) Surgical Problems: (1) History of appendectomy (2) History of nephrolithotomy with removal of calculi (3) Hx of tonsillectomy Family History Diabetes mellitus MOTHER Social History Smoking Status: Never Smoker Alcohol Use: none Drug Use: none Marital Status: Housing Status: lives with family Occupation Status: retired Current/Historical Medications Scheduled Cyanocobalamin (Vitamin B12), 1,000 MCG PO DAILY AT LUNCH Folic Acid (Folic Acid), 1 MG PO DAILY Memantine (Namenda), 10 MG PO BID Multivitamin (Multivitamin), 1 TAB PO DAILY Omeprazole (Prilosec), 40 MG PO DAILY Polyethylene Glycol 3350 (Miralax), 17 GM PO QAM Simvastatin (Simvastatin), 40 MG PO QPM Vitamin E (E-400), 400 UNITS PO DAILY Allergies Coded Allergies: Aspirin (Verified Adverse Reaction, Severe, STOMACH CRAMPS WITH 325MG, ) Physical Exam Vital Signs Date Time Temp Pulse Resp B/P (MAP) Pulse Ox O2 Delivery O2 Flow Rate FiO2 09/18/17 17:40 106 18 167/72 98 09/18/17 17:16 55 09/18/17 16:54 96 Room Air 09/18/17 16:12 37.2 66 20 125/79 96 Room Air Physical Exam GENERAL: Patient is in no acute distress. HEENT: No acute trauma, normocephalic atraumatic, mucous membranes moist, no nasal congestion, no scleral icterus. NECK: No stridor, no adenopathy, no meningismus, trachea is midline. LUNGS: Clear to auscultation bilaterally, no wheeze, no rhonchi, breath sounds equal. HEART: Without murmurs gallops or rubs, regular rate and rhythm. ABDOMEN: Soft, nontender, bowel sounds positive, no hernias, no peritonitis. EXTREMITIES: No cyanosis or edema, full range of motion of all the joints without pain or difficulty, no signs for acute trauma. NEUROLOGIC: Oriented x 3, no acute motor or sensory deficits, no focal weakness. SKIN: No rash, no jaundice, no diaphoresis. Medical Decision & Procedures ER Provider Diagnostic Interpretation: Radiology results as stated below per my review and radiologist interpretation: CT HEAD WITHOUT CONTRAST (CT) CLINICAL HISTORY: R0 mental status. Weakness. COMPARISON STUDY: July 05, 2017 TECHNIQUE: Axial CT of the brain is performed from the vertex to the skull base. IV contrast was not administered for this examination. A dose lowering technique was utilized adhering to the principles of ALARA. CT DOSE: 537.48 mGy.cm FINDINGS: No intra or extra-axial mass lesions are visualized. There is no CT evidence of acute cortical infarction. There is no evidence of midline shift. There is no acute hemorrhage. No calvarial fractures are visualized. There are patchy white matter hypodensities likely on a small vessel basis. There is no evidence of pathologic ventricular dilatation. There is no evidence of acute sinusitis IMPRESSION: No acute intracranial findings Electronically signed by: Segundo Crouch M.D. 09/18/2017 5:35 PM Dictated Date/Time: 09/18/2017 5:33 PM CHEST ONE VIEW PORTABLE CLINICAL HISTORY: Altered mental status COMPARISON STUDY: July 05, 2017 FINDINGS: The cardiac and mediastinal contours are normal. There is no evidence of focal pulmonary consolidation. There is no evidence of failure. No pleural effusions are visualized.[ There is a stable linear area of atelectasis/scarring at the right lung base. IMPRESSION: No active disease in the chest. Electronically signed by: Segundo Crouch M.D. 09/18/2017 4:56 PM Dictated Date/Time: 09/18/2017 4:56 PM Laboratory Results 09/18/17 16:37 Red Blood Count 5.09, Mean Corpuscular Volume 97.2, Mean Corpuscular Hemoglobin 34.0, Mean Corpuscular Hemoglobin Concent 34.9, Mean Platelet Volume 10.0, Neutrophils (%) (Auto) 59.7, Lymphocytes (%) (Auto) 30.5, Monocytes (%) (Auto) 8.9, Eosinophils (%) (Auto) 0.3, Basophils (%) (Auto) 0.3, Neutrophils # (Auto) 6.94, Lymphocytes # (Auto) 3.55, Monocytes # (Auto) 1.04, Eosinophils # (Auto) 0.03, Basophils # (Auto) 0.04 09/18/17 16:37 Test 09/18/17 16:37 09/18/17 17:35 White Blood Count 11.63 K/uL (4.8-10.8) Red Blood Count 5.09 M/uL (4.7-6.1) Hemoglobin 17.3 g/dL (14.0-18.0) Hematocrit 49.5 % (42-52) Mean Corpuscular Volume 97.2 fL (80-100) Mean Corpuscular Hemoglobin 34.0 pg (25-34) Mean Corpuscular Hemoglobin Concent 34.9 g/dl (32-36) Platelet Count 193 K/uL (130-400) Mean Platelet Volume 10.0 fL (7.4-10.4) Neutrophils (%) (Auto) 59.7 % Lymphocytes (%) (Auto) 30.5 % Monocytes (%) (Auto) 8.9 % Eosinophils (%) (Auto) 0.3 % Basophils (%) (Auto) 0.3 % Neutrophils # (Auto) 6.94 K/uL (1.4-6.5) Lymphocytes # (Auto) 3.55 K/uL (1.2-3.4) Monocytes # (Auto) 1.04 K/uL (0.11-0.59) Eosinophils # (Auto) 0.03 K/uL (0-0.5) Basophils # (Auto) 0.04 K/uL (0-0.2) RDW Standard Deviation 43.5 fL (36.4-46.3) RDW Coefficient of Variation 12.2 % (11.5-14.5) Immature Granulocyte % (Auto) 0.3 % Immature Granulocyte # (Auto) 0.03 K/uL (0.00-0.02) Anion Gap 6.0 mmol/L (3-11) Est Creatinine Clear Calc Drug Dose 33.1 ml/min Estimated GFR () 48.2 Estimated GFR (Non- 41.6 BUN/Creatinine Ratio 14.0 (10-20) Calcium Level 9.1 mg/dl (8.5-10.1) Magnesium Level 2.4 mg/dl (1.8-2.4) Total Bilirubin 1.2 mg/dl (0.2-1) Aspartate Amino Transf (AST/SGOT) 19 U/L (15-37) Alanine Aminotransferase (ALT/SGPT) 23 U/L (12-78) Alkaline Phosphatase 82 U/L (45-117) Total Creatine Kinase 68 U/L (39-308) Troponin I < 0.015 ng/ml (0-0.045) Total Protein 7.2 gm/dl (6.4-8.2) Albumin 4.1 gm/dl (3.4-5.0) Globulin 3.1 gm/dl (2.5-4.0) Albumin/Globulin Ratio 1.3 (0.9-2) Thyroid Stimulating Hormone (TSH) 2.110 uIu/ml (0.300-4.500) Urine Color YELLOW Urine Appearance CLEAR (CLEAR) Urine pH 6.5 (4.5-7.5) Urine Specific Rembert 1.014 (1.000-1.030) Urine Protein NEG (NEG) Urine Glucose (UA) NEG (NEG) Urine Ketones TRACE (NEG) Urine Occult Blood NEG (NEG) Urine Nitrite NEG (NEG) Urine Bilirubin NEG (NEG) Urine Urobilinogen NEG (NEG) Urine Leukocyte Esterase NEG (NEG) Laboratory results reviewed by me. Medications Administered Medications (Trade) Dose Ordered Sig/Saundra Route Start Time Stop Time Status Last Admin Dose Admin Sodium Chloride 500 ml @ 999 mls/hr Q31M STAT IV 09/18/17 16:24 09/18/17 16:54 DC 09/18/17 16:55 999 MLS/HR ECG Indication: other (Neurologic Symptoms) Rate (beats per minute): 57 Rhythm: sinus bradycardia Findings: no acute ischemic change, no ectopy ED Course 1618: The patient was evaluated in room B3B. A complete history and physical exam was performed. 1624: Ordered Sodium Chloride 500 ml @ 999 mls/hr IV 1815: I spoke with Dr. Ramos of [facility] at this time. He recommended starting the patient on Keppra and following up in the office. 1836: I discussed Dr. Ramos's recommendations with the patient at this time. He does not want to take Keppra. They will discuss other options tomorrow when he sees the Neurologist. 1850: Reevaluated the patient. Discussed results and discharge instructions: He verbalized understanding and agreement. The patient is ready for discharge. Medical Decision Differential diagnosis includes but is not limited to medication reaction, electrolyte imbalance, dehydration, anemia, infection, and neuropathy. There is a very mild leukocytosis, this could be consistent with infection or the stress of his situation. No concerning anemia. No significant electrolyte abnormality. There was some mild renal insufficiency but this is baseline looking back at previous testing. The patient did not have evidence for hepatitis. The patient was in a euthyroid state. EKG showed a sinus rhythm, no acute ischemia. Cardiac enzyme testing times one is not consistent with acute cardiac injury. Chest x-ray does not show pneumonia or CHF. Brain CT shows no acute bleed or mass effect. Urinalysis does not show evidence for infection. The patient received IV saline, he has been resting comfortably. I discussed his case with the neurologist on-call. Restarting antiseizure medication such as Keppra was recommended. The patient was reluctant to start any antiseizure meds as he was having a difficult time tolerating them in the past. He would like to talk with his neurologist tomorrow to decide if he truly needs to restart meds. I think this is reasonable. He does not drive. Hydration, rest were encouraged. If worsening, he can return. He will follow up as an outpatient. The cause for the extremity numbness is unclear, it has been occurring though on and off for years. Medication Reconcilliation Current Medication List: was personally reviewed by me Blood Pressure Screening Patient's blood pressure: Normal blood pressure Blood pressure disposition: Did not require urgent referral Consults Time Called: 1809 Consulting Physician: Dr. [facility] Returned Call: [phone] We discussed the patient's case. He recommended starting the patient on Keppra and following up in the office tomorrow. Impression Primary Impression: Extremity numbness Additional Impression: Seizure Scribe Attestation The scribe's documentation has been prepared under my direction and personally reviewed by me in its entirety. I confirm that the note above accurately reflects all work, treatment, procedures, and medical decision making performed by me. Departure Information Dispostion Home / Self-Care Referrals Maegan Valencia M.D. (PCP) Forms HOME CARE DOCUMENTATION FORM, IMPORTANT VISIT INFORMATION, WORK / SCHOOL INSTRUCTIONS Patient Instructions My [facility] Additional Instructions stay hydrated try to sleep as we discussed talk with neurologist tomorrow about restarting seizure meds return if worsening testing today was all ok Problem Qualifiers
[2017-09-18 16:47] LABS: BASO % 0.3 %; BASO ABS # 0.04 K/uL (0-0.2); COMPLETE YES; EOS % 0.3 %; HEMATOCRIT 49.5 % (42-52); IG% 0.3 %; LYMPH % 30.5 %; LYMPH ABS # 3.55 K/uL (1.2-3.4); MEAN CELL VOLUME 97.2 fL (80-100); MEAN CORPUSCULAR HGB CONC 34.9 g/dl (32-36); MONO % 8.9 %; NEUT % 59.7 %; PLATELET COUNT 193 K/uL (130-400); RED BLOOD COUNT 5.09 M/uL (4.7-6.1); WHITE BLOOD COUNT 11.63 K/uL (4.8-10.8)
[2017-09-18 16:54] VITALS: O2SAT 96
--- NOTE | 2017-09-18 16:58 | DIAGNOSTIC IMAGING REPORT ---
CHEST ONE VIEW PORTABLE CLINICAL HISTORY: Altered mental status COMPARISON STUDY: July 05, 2017 FINDINGS: The cardiac and mediastinal contours are normal. There is no evidence of focal pulmonary consolidation. There is no evidence of failure. No pleural effusions are visualized.[ There is a stable linear area of atelectasis/scarring at the right lung base. IMPRESSION: No active disease in the chest. Electronically signed by: Segundo Crouch M.D. 09/18/2017 4:56 PM Dictated Date/Time: 09/18/2017 4:56 PM
[2017-09-18 17:03] LABS: ALT/SGPT 23 U/L (12-78); AST/SGOT 19 U/L (15-37); BLOOD UREA NITROGEN 21 mg/dl (7-18); CALCIUM 9.1 mg/dl (8.5-10.1); CARBON DIOXIDE 28 mmol/L (21-32); CHLORIDE 104 mmol/L (98-107); GLUCOSE 95 mg/dl (70-99); MAGNESIUM 2.4 mg/dl (1.8-2.4); SODIUM 138 mmol/L (136-145)
[2017-09-18 17:14] LABS: ALB/GLOB RATIO 1.3 (0.9-2); ALKALINE PHOSPHATASE 82 U/L (45-117)
--- NOTE | 2017-09-18 17:36 | DIAGNOSTIC IMAGING REPORT ---
CT HEAD WITHOUT CONTRAST (CT) CLINICAL HISTORY: R0 mental status. Weakness. COMPARISON STUDY: July 05, 2017 TECHNIQUE: Axial CT of the brain is performed from the vertex to the skull base. IV contrast was not administered for this examination. A dose lowering technique was utilized adhering to the principles of ALARA. CT DOSE: 537.48 mGy.cm FINDINGS: No intra or extra-axial mass lesions are visualized. There is no CT evidence of acute cortical infarction. There is no evidence of midline shift. There is no acute hemorrhage. No calvarial fractures are visualized. There are patchy white matter hypodensities likely on a small vessel basis. There is no evidence of pathologic ventricular dilatation. There is no evidence of acute sinusitis IMPRESSION: No acute intracranial findings Electronically signed by: Segundo Crouch M.D. 09/18/2017 5:35 PM Dictated Date/Time: 09/18/2017 5:33 PM
[2017-09-18 17:55] LABS: URINE APPEARANCE CLEAR (CLEAR); URINE BILIRUBIN NEG (NEG); URINE COLOR YELLOW; URINE NITRITE NEG (NEG); URINE PH 6.5 (4.5-7.5); URINE SPECIFIC GRAVITY 1.014 (1.000-1.030); UROBILINOGEN NEG (NEG); ZZUR CULT IF INDIC CLEAN CATCH NO
[2017-09-18 18:05] LABS: MANUAL MICROSCOPIC REQUIRED? NO; REVIEW REQ? NO
[2017-09-18 19:10] VITALS: BP 138/65; PULSE 75; O2SAT 97
== END 2017-09-18 19:16 | disposition home or self-care (01) ==
LOC: C.EDB 15:58
DX: R20.0 Anesthesia of skin (principal); R56.9 Unspecified convulsions; F03.90 Unspecified dementia, unspecified severity, without behavioral disturbance, psychotic disturbance, mood disturbance, and anxiety; K21.9 Gastro-esophageal reflux disease without esophagitis; G45.9 Transient cerebral ischemic attack, unspecified; Z83.3 Family history of diabetes mellitus

== ENCOUNTER → 2017-10-25 | Outpatient (CLI) | payer OTHER ==
[2017-10-25 18:03] LABS: BASO % 0.4 %; BASO ABS # 0.04 K/uL (0-0.2); COMPLETE YES; EOS % 0.6 %; HEMATOCRIT 45.3 % (42-52); IG% 0.2 %; LYMPH % 32.8 %; LYMPH ABS # 3.09 K/uL (1.2-3.4); MEAN CELL VOLUME 100.7 fL (80-100); MEAN CORPUSCULAR HEMOGLOBIN 34.2 pg (25-34); MEAN PLATELET VOLUME 10.7 fL (7.4-10.4); MONO % 10.1 %; NEUT % 55.9 %; PLATELET COUNT 159 K/uL (130-400); WHITE BLOOD COUNT 9.41 K/uL (4.8-10.8)
[2017-10-25 18:12] LABS: ALB/GLOB RATIO 1.3 (0.9-2); ALKALINE PHOSPHATASE 76 U/L (45-117); ALT/SGPT 21 U/L (12-78); AST/SGOT 20 U/L (15-37); BLOOD UREA NITROGEN 17 mg/dl (7-18); BUN/CREATININE RATIO 13.1 (10-20); CALCIUM 9.2 mg/dl (8.5-10.1); CARBON DIOXIDE 29 mmol/L (21-32); CHLORIDE 105 mmol/L (98-107); CHOLESTEROL 147 mg/dl (0-200); CREATININE 1.32 mg/dl (0.60-1.40); GLUCOSE 93 mg/dl (70-99); POTASSIUM 4.7 mmol/L (3.5-5.1); SODIUM 136 mmol/L (136-145)
[2017-10-25 18:13] LABS: CHOLESTEROL/HDL RATIO 2.9; HDL CHOLESTEROL 51 mg/dl; LDL CHOLESTEROL CALCULATED 64 mg/dl; TRIGLYCERIDES 160 mg/dl (0-150); VERY LOW DENSITY LIPOPROT CALC 32 mg/dl
== END | disposition home or self-care (01) ==
LOC: C.LABMFLN 12:17
PROVIDERS: ATTEND Family Medicine
DX: F03.90 Unspecified dementia, unspecified severity, without behavioral disturbance, psychotic disturbance, mood disturbance, and anxiety (principal); E78.5 Hyperlipidemia, unspecified

== ENCOUNTER → 2017-10-27 | Outpatient (CLI) | payer OTHER | END | disposition home or self-care (01) | LOC: C.LABMFLN 15:30 | PROVIDERS: ATTEND Family Medicine | DX: D75.89 Other specified diseases of blood and blood-forming organs (principal) ==

== ENCOUNTER 2018-01-08 16:33 | Emergency (ER) | payer OTHER ==
[~2018-01-08] VITALS: Ht 170.2 cm; Wt 66.1 kg
[~2018-01-08 16:33] MED LIST changes: -CYAN100020 PO; -FLV1 PO; -MULT-506 PO; -ZCR40 PO
[2018-01-08] MEDS ORDERED: FLV1 PO (16:36)
[2018-01-08] MEDS ORDERED: CYAN100020 PO (16:36)
[2018-01-08] MEDS ORDERED: ZCR40 PO (16:36)
[2018-01-08] MEDS ORDERED: MULT-506 PO (17:23)
[2018-01-08 17:24] VITALS: Ht 170.2 cm; Wt 66.1 kg
[2018-01-08 17:59] LABS: INFLUENZA B ANTIGEN Neg for Influ B (NEG)
[2018-01-08] MEDS ORDERED: MEMA1TAB4 PO (19:48)
--- NOTE | 2018-01-08 20:02 | EMERGENCY ROOM VISIT NOTE ---
History Report prepared by Gurvinder: Rob Rodriguez Under the Supervision of: Raymon Key.O. First contact with patient: 19:16 Chief Complaint: FLU LIKE SX Stated Complaint: COUGH, NAUSEA, ACHEY, TIRED History of Present Illness The patient is an 87 year old male who presents to the Emergency Room with complaints of persistent cough for two weeks. He reports that he is beginning to develop shortness of breath with the cough, though he denies any chest pain. He notes there is sputum with the cough, though it does not come up far enough to spit out so he swallows it. He is unsure of the color of the sputum. He reports nasal discharge. He reports nausea, though denies any vomiting. He had a low grade fever last week, though he reports chills for the past week. He denies any diarrhea, though reports taking Miralax for baseline constipation. He reports trying to keep up with his fluid intake. He denies any leg swelling. He notes medication-related blurry vision. He reports receiving the flu shot this season. He has a history of aspiration PNA. He denies any history of smoking or asthma. He also denies any history of cardiac problems. Patient and most concerned about flu or occult pneumonia. Source of History: patient Onset: two weeks Position: other (global ) Quality: other (cough) Timing: other (persistent) Associated Symptoms: + fevers (low grade), + chills, + SOB, + nausea, No chest pain, No vomiting, No diarrhea Note: He reports nasal discharge. He denies any leg swelling. Review of Systems Pt denies headache, change in vision, fevers, chest pain, shortness of breath, nausea, vomiting, diarrhea, pain with urination, and melena. Past Medical & Surgical Medical Problems: (1) Acid reflux (2) Balanitis (3) Change in mental status (4) Confusion (5) Dementia (6) Encephalopathy (7) GERD (gastroesophageal reflux disease) (8) Hiatal hernia (9) High cholesterol (10) Hypoxia (11) Kidney disease (12) Kidney stones (13) Pneumonia (14) Seizure (15) Stomach problems (16) Symptoms of cerebrovascular accident (17) TIA (transient ischemic attack) (18) Weakness Surgical Problems: (1) History of appendectomy (2) History of nephrolithotomy with removal of calculi (3) Hx of tonsillectomy Family History Diabetes mellitus MOTHER Social History Smoking Status: Never Smoker Alcohol Use: none Drug Use: none Marital Status: Housing Status: lives with significant other Occupation Status: retired Current/Historical Medications Scheduled Cyanocobalamin (Vitamin B12), 1,000 MCG PO DAILY Folic Acid (Folic Acid), 1 MG PO DAILY Memantine HCl (Memantine HCl), 10 MG PO BID Multivitamin (Multivitamin), 1 TAB PO DAILY Omeprazole (Prilosec), 40 MG PO QAM Polyethylene Glycol 3350 (Miralax), 17 GM PO QAM Simvastatin (Simvastatin), 40 MG PO QPM Vitamin E (E-400), 400 INTER.UNIT PO DAILY Allergies Coded Allergies: Aspirin (Verified Adverse Reaction, Severe, STOMACH CRAMPS WITH 325MG, ) Physical Exam Vital Signs Date Time Temp Pulse Resp B/P (MAP) Pulse Ox O2 Delivery O2 Flow Rate FiO2 01/08/18 21:25 66 16 105/64 95 01/08/18 21:11 66 18 105/67 96 Room Air 01/08/18 20:51 61 01/08/18 20:44 36.8 64 18 144/93 96 Room Air 01/08/18 19:44 59 18 135/77 97 Room Air 01/08/18 17:24 36.7 58 18 118/59 95 Room Air Physical Exam GENERAL: alert, well appearing, well nourished, no distress, non-toxic EYE EXAM: normal conjunctiva, PERRL and EOM's grossly intact OROPHARYNX: no exudate, no erythema, lips, buccal mucosa, and tongue normal and mucous membranes are moist NECK: supple, no nuchal rigidity, no adenopathy, non-tender LUNGS: Clear to auscultation. Normal chest wall mechanics, no w/r/r HEART: no murmurs, S1 normal and S2 normal ABDOMEN: abdomen soft, non-tender, normo-active bowel sounds, no masses, no rebound or guarding. BACK: Back is symmetrical on inspection and there is no deformity, no midline tenderness, no CVA tenderness. SKIN: no rashes and no bruising UPPER EXTREMITIES: upper extremities are grossly normal. Full range of motion, normal pulses. LOWER EXTREMITIES: No pitting edema. Full range of motion, normal pulses. NEURO EXAM: Normal sensorium, cranial nerves II-XII grossly intact, normal speech, no gross weakness of arms, no gross weakness of legs. Medical Decision & Procedures ER Provider Diagnostic Interpretation: Radiology results have been interpreted by the radiologist and reviewed by me. CHEST 2 VIEWS ROUTINE CLINICAL HISTORY: cough dyspnea COMPARISON STUDY: 09/18/2017 FINDINGS: The bones soft tissues and hemidiaphragms are normal. The cardiomediastinal silhouette is normal. The lungs are clear. The pulmonary vasculature is normal. IMPRESSION: Negative chest. The above report was generated using voice recognition software. It may contain grammatical, syntax or spelling errors. Electronically signed by: Khurram Quiros M.D. 01/08/2018 8:35 PM Dictated Date/Time: 01/08/2018 8:34 PM Laboratory Results 01/08/18 19:50 Red Blood Count 4.45, Mean Corpuscular Volume 98.0, Mean Corpuscular Hemoglobin 34.4, Mean Corpuscular Hemoglobin Concent 35.1, Mean Platelet Volume 10.4, Neutrophils (%) (Auto) 57.3, Lymphocytes (%) (Auto) 31.1, Monocytes (%) (Auto) 10.0, Eosinophils (%) (Auto) 1.1, Basophils (%) (Auto) 0.2, Neutrophils # (Auto ) 5.65, Lymphocytes # (Auto) 3.07, Monocytes # (Auto) 0.99, Eosinophils # (Auto ) 0.11, Basophils # (Auto) 0.02 01/08/18 19:50 Test 01/08/18 00:00 01/08/18 19:50 01/08/18 19:55 Influenza Type A Antigen Neg for Influ A (NEG) Influenza Type B Antigen Neg for Influ B (NEG) White Blood Count 9.87 K/uL (4.8-10.8) Red Blood Count 4.45 M/uL (4.7-6.1) Hemoglobin 15.3 g/dL (14.0-18.0) Hematocrit 43.6 % (42-52) Mean Corpuscular Volume 98.0 fL (80-100) Mean Corpuscular Hemoglobin 34.4 pg (25-34) Mean Corpuscular Hemoglobin Concent 35.1 g/dl (32-36) Platelet Count 159 K/uL (130-400) Mean Platelet Volume 10.4 fL (7.4-10.4) Neutrophils (%) (Auto) 57.3 % Lymphocytes (%) (Auto) 31.1 % Monocytes (%) (Auto) 10.0 % Eosinophils (%) (Auto) 1.1 % Basophils (%) (Auto) 0.2 % Neutrophils # (Auto) 5.65 K/uL (1.4-6.5) Lymphocytes # (Auto) 3.07 K/uL (1.2-3.4) Monocytes # (Auto) 0.99 K/uL (0.11-0.59) Eosinophils # (Auto) 0.11 K/uL (0-0.5) Basophils # (Auto) 0.02 K/uL (0-0.2) RDW Standard Deviation 42.7 fL (36.4-46.3) RDW Coefficient of Variation 12.1 % (11.5-14.5) Immature Granulocyte % (Auto) 0.3 % Immature Granulocyte # (Auto) 0.03 K/uL (0.00-0.02) Prothrombin Time 10.0 SECONDS (9.0-12.0) Prothromb Time International Ratio 1.0 (0.9-1.1) Anion Gap 10.0 mmol/L (3-11) Est Creatinine Clear Calc Drug Dose 37.1 ml/min Estimated GFR () 56.3 Estimated GFR (Non- 48.6 BUN/Creatinine Ratio 12.5 (10-20) Calcium Level 9.1 mg/dl (8.5-10.1) Total Bilirubin 1.1 mg/dl (0.2-1) Aspartate Amino Transf (AST/SGOT) 27 U/L (15-37) Alanine Aminotransferase (ALT/SGPT) 35 U/L (12-78) Alkaline Phosphatase 69 U/L (45-117) Troponin I < 0.015 ng/ml (0-0.045) Pro-B-Type Natriuretic Peptide 189 pg/ml (0-1800) Total Protein 6.7 gm/dl (6.4-8.2) Albumin 3.5 gm/dl (3.4-5.0) Globulin 3.2 gm/dl (2.5-4.0) Albumin/Globulin Ratio 1.1 (0.9-2) Bedside Lactic Acid Venous 0.94 mmol/L (0.90-1.70) Laboratory results per my review. Medications Administered Medications (Trade) Dose Ordered Sig/Saundra Route Start Time Stop Time Status Last Admin Dose Admin Benzonatate (Tessalon Perles Cap) 100 mg NOW ONCE PO 01/08/18 20:45 01/08/18 20:46 DC 01/08/18 21:12 100 MG ECG Indication: SOB/dyspnea Rate (beats per minute): 58 Rhythm: sinus bradycardia Findings: no acute ischemic change, no ectopy, other (Normal axis. Normal intervals .) Change: EKG: Patient's electrocardiogram per my interpretation. ED Course 1920: The patient was evaluated in room B11B. A complete history and physical exam was performed. 2044: Ordered Benzonatate 100 mg PO 2043: I reassessed the patient at this time. He is feeling better and resting comfortably. I discussed the results and treatment plan with the patient. I answered all pertaining questions that he had. He expressed understanding and verbalized agreement. The patient will be discharged home. Medical Decision Differential diagnoses includes but is not limited to pneumonia, bronchitis, COPD/Asthma exacerbation, pneumothorax, pulmonary embolism, congestive heart failure, acute coronary syndrome Patient well-appearing here throughout, vital signs stable, no hypoxia, and no frequent fits of coughing. Patient and related with a steady gait and was tolerating by mouth at bedside. Labs and imaging reassuring on the patient, have a low suspicion for occult pneumonia or other occult infectious etiology. No evidence of bacteremia/sepsis. Flu swab negative. Discussed with him follow -up with family doctor as a precaution, symptoms to watch and return for, over- the-counter medications that could be used for some of the symptoms, he had verbalized understanding were agreeable with plan and are comfortable going home. Medication Reconcilliation Current Medication List: was personally reviewed by me Blood Pressure Screening Patient's blood pressure: Elevated blood pressure Blood pressure disposition: Elevated BP felt to be situational Impression Primary Impression: Upper respiratory infection Scribe Attestation The scribe's documentation has been prepared under my direction and personally reviewed by me in its entirety. I confirm that the note above accurately reflects all work, treatment, procedures, and medical decision making performed by me. Departure Information Dispostion Home / Self-Care Referrals Maegan Valencia M.D. (PCP) Forms HOME CARE DOCUMENTATION FORM, IMPORTANT VISIT INFORMATION Patient Instructions ED URI Viral, My [facility] Additional Instructions Please call and follow-up with your family doctor this week. Please continue your regular medications as prescribed. You may continue the cough medicine you have been taking or try the pill you were given here. Please consider using Mucinex to help with the chest congestion. If you have any worsening cough, notice blood in your sputum, develop fevers/chills, vomiting, diarrhea, chest pain, have trouble breathing, or you have any other new or concerning symptoms, please return to the emergency room. Problem Qualifiers Primary Impression: Upper respiratory infection URI type: unspecified URI Qualified Codes: J06.9 - Acute upper respiratory infection, unspecified
[2018-01-08 20:06] LABS: BASO % 0.2 %; BASO ABS # 0.02 K/uL (0-0.2); EOS % 1.1 %; EOS ABS # 0.11 K/uL (0-0.5); HEMATOCRIT 43.6 % (42-52); HEMOGLOBIN 15.3 g/dL (14.0-18.0); IG# 0.03 K/uL (0.00-0.02); LYMPH % 31.1 %; LYMPH ABS # 3.07 K/uL (1.2-3.4); MEAN CORPUSCULAR HEMOGLOBIN 34.4 pg (25-34); MEAN CORPUSCULAR HGB CONC 35.1 g/dl (32-36); MEAN PLATELET VOLUME 10.4 fL (7.4-10.4); MONO ABS # 0.99 K/uL (0.11-0.59); NEUT % 57.3 %; NEUT ABS # 5.65 K/uL (1.4-6.5); PLATELET COUNT 159 K/uL (130-400); RED CELL DISTRIBUTION WIDTH CV 12.1 % (11.5-14.5); RED CELL DISTRIBUTION WIDTH SD 42.7 fL (36.4-46.3); WHITE BLOOD COUNT 9.87 K/uL (4.8-10.8)
[2018-01-08 20:18] LABS: ALBUMIN 3.5 gm/dl (3.4-5.0); ALT/SGPT 35 U/L (12-78); AST/SGOT 27 U/L (15-37); BLOOD UREA NITROGEN 16 mg/dl (7-18); CALCIUM 9.1 mg/dl (8.5-10.1); CARBON DIOXIDE 25 mmol/L (21-32); CREATININE 1.31 mg/dl (0.60-1.40); GLUCOSE 88 mg/dl (70-99); POTASSIUM 3.8 mmol/L (3.5-5.1); SODIUM 139 mmol/L (136-145)
[2018-01-08 20:23] LABS: ALKALINE PHOSPHATASE 69 U/L (45-117); TOTAL PROTEIN 6.7 gm/dl (6.4-8.2)
--- NOTE | 2018-01-08 20:36 | DIAGNOSTIC IMAGING REPORT ---
CHEST 2 VIEWS ROUTINE CLINICAL HISTORY: cough dyspnea COMPARISON STUDY: 09/18/2017 FINDINGS: The bones soft tissues and hemidiaphragms are normal. The cardiomediastinal silhouette is normal. The lungs are clear. The pulmonary vasculature is normal. IMPRESSION: Negative chest. The above report was generated using voice recognition software. It may contain grammatical, syntax or spelling errors. Electronically signed by: Khurram Quiros M.D. 01/08/2018 8:35 PM Dictated Date/Time: 01/08/2018 8:34 PM
[2018-01-08 20:44] VITALS: TEMP 36.8
[2018-01-08] MEDS ORDERED: BENZONATATE 100MG CAP PO ONE (20:45)
[2018-01-08 21:25] VITALS: BP 105/64; PULSE 66; O2SAT 95
== END 2018-01-08 21:28 | disposition home or self-care (01) ==
LOC: C.EDB 16:52
DX: J06.9 Acute upper respiratory infection, unspecified (principal); Z87.01 Personal history of pneumonia (recurrent); K21.9 Gastro-esophageal reflux disease without esophagitis; F03.90 Unspecified dementia, unspecified severity, without behavioral disturbance, psychotic disturbance, mood disturbance, and anxiety; E78.00 Pure hypercholesterolemia, unspecified; Z87.442 Personal history of urinary calculi; Z86.73 Personal history of transient ischemic attack (TIA), and cerebral infarction without residual deficits; Z83.3 Family history of diabetes mellitus; Z79.899 Other long term (current) drug therapy